=== PATIENT | female | born 1975 | race Caucasian/White ===

== ENCOUNTER 2022-10-19 12:49 | Observation (INO) ==
[2022-10-19 13:57] LABS: Basophils # (auto) 0.04 K/uL (0-0.2); Basophils % (auto) 0.7 %; Eosinophils % (auto) 9.2 %; Hematocrit (blood only) 23.6 % (37.0-47.0); Hemoglobin 7.5 g/dl (12.0-16.0); Immature Granulocytes # (auto) 0.01 K/uL (0.01-0.20); Immature Granulocytes % (auto) 0.2 %; Lymphocytes # (auto) 1.69 K/uL (1.2-3.4); Mean Corpuscular Hemoglobin 28.1 pg (25.0-34.0); Mean Corpuscular Hgb Conc 31.8 g/dL (32.0-36.0); Mean Corpuscular Volume 88.4 fL (80.0-100.0); Mean Platelet Volume 10.2 fL (9.4-12.4); Monocytes # (auto) 0.39 K/uL (0.11-0.59); Monocytes % (auto) 7.2 %; Neutrophils # (auto) 2.82 K/uL (1.40-6.50); Neutrophils % (auto) 51.7 %; Platelet Count 349 K/uL (130-400); RDW Coefficient of Variation 17.4 % (11.5-14.5); RDW Standard Deviation 54.5 fL (36.4-46.3); Red Blood Count 2.67 M/uL (4.20-5.40); White Blood Count 5.45 K/ul (4.8-10.8)
[2022-10-19 14:20] LABS: Albumin Globulin Ratio 1.6 (0.9-2); Albumin Level 3.4 gm/dl (3.4-5.0); BUN Creatinine Ratio 25.6 (10-20); Bilirubin,Total 0.4 mg/dl (0.2-1.0); Calcium 8.6 mg/dl (8.6-10.3); Creatinine Clr Calc Pharmacy 92.5 ml/min; Est GFR (African American) 104.2 ml/min; Est GFR (Non-African American) 89.9 ml/min; Globulin 2.1 gm/dl (2.5-4.0); Potassium 4.1 mmol/L (3.5-5.1); Total Protein 5.5 gm/dl (6.0-8.3)
[2022-10-19 14:21] LABS: Polychromasia 1+
[2022-10-19] MEDS ORDERED: PANTOprazole 40 MG in SYRINGE 0 ML IV ONE (14:30)
[2022-10-19] MEDS ORDERED: PANTOPRAZOLE BOLUS/DRIP 1 EACH IV STA (15:33)
[2022-10-19] MEDS ORDERED: SODIUM CHLORIDE 0.9% 1000ML 1,000 ML IV ONE (15:33)
[2022-10-19] MEDS ORDERED: PANTOprazole 80 MG in DEXTROSE 5% 100 ML IV ONE (15:33)
[2022-10-19] MEDS ORDERED: ONDANSETRON INJ 2 MG/ML 2 ML VIAL IV STA (15:34)
[2022-10-19] MEDS ORDERED: MoRPHine SULFATE 4 MG/ML 1 ML CARP\\VIAL IV STA ×2 (15:34→16:51)
--- NOTE | 2022-10-19 15:35 | Emergency Department Note ---
Impression & Plan UGIB (upper gastrointestinal bleed) ADMIT ED Provider Note HPI: The patient is a very pleasant 47-year-old female with history of gastric bypass, complicated historically with marginal ulcers and anemia, presents emergency department with a chief complaint of dark stools recently. Patient states she mentioned the symptoms to her PCP and was referred to the ED for fu rther evaluation. On arrival here to the ED the patient complains of some epigastric pain, denies any vomiting, states her stools have been dark recently. Patient is hemodynamically stable on arrival, she is not tachycardic, she is saturating well on room air. ROS: - Per HPI *Outpatient medications and allergy history reviewed. *Pertinent external medical records reviewed. PE: General: Alert HEENT: Normocephalic, trachea midline Eyes: Extraocular eye movement is intact, no scleral erythema Pulmonary: Clear to auscultation bilaterally, no wheezing Cardio: Regular rate and rhythm GI: Abdomen is soft to palpation, moderate epigastric tenderness to palpation without guarding or rigidity : No suprapubic tenderness MSK: No evidence of trauma or malformation of the extremities, no edema Skin: No evidence of rash Neuro: Alert, no focal deficits Psychiatric: Cooperative pvc monitor: (As interpreted by myself): - An order was placed for continuous cardiac monitoring - Patient was noted to be in sinus rhythm with a rate of 70 Interventions provided in ED: -IV morphine, IV Zofran, IV Protonix bolus and drip Differential Diagnosis: Peptic ulcer disease, perforated viscus, acute gastritis, perforation of marginal ulcer, acute pancreatitis, amongst other potential pathologies. Medical Decision Making: The patient is a 39-year-old female who presented to the emergency department with epigastric pain. Shortly after the patient arrived IV was established and lab work obtained, patient was maintained on media monitor. Patient is hemodynamically stable on arrival. Lab work shows evidence of anemia with hemoglobin of 7.5, previous lab work in July showed hemoglobin within normal limits. Patient has complained of dark stools recently and does have history of gastric bypass that has been complicated in the past with gastrojejunal anastomotic ulcerations. CT imaging of the abdomen pelvis was therefore performed and does not show any evidence of perforated viscus/ulcer. There is evidence of gastritis on imaging. Patient required IV morphine and IV Zofran here in the ED for pain and nausea. She was placed on a Protonix bolus and drip. Type and screen was ordered, given the patient's hemodynamic stability, transfusion will be deferred at this time as hemoglobin is above 7.0. Patient is in agreement to this. Case was discussed with the on-call supervisor nurse for [facility], Dr. Estes, who was in agreement for consultation, recommends making the patient n.p.o. and they will likely do an EGD in the morning. I discussed this with the patient and she is in agreement. Case was therefore then discussed with the on-call midlevel provider for the [facility] hospitalist service, Kaila Leal, and the patient was placed for admission in stable condition. Consultants: - Hospitalist service, Dr. Abel -Gastroenterology, Dr. Estes Disposition discussion held by myself with: Patient Diagnosis: 1. Upper GI bleed 2. Anemia, acute, secondary to gastrointestinal hemorrhage 3. Epigastric pain, acute 4. 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 Sacroiliac joint pain Surgical History Gastric bypass status for obesity H/O cystoscopy H/O lithotripsy History of bilateral tubal ligation History of cholecystectomy History of colonoscopy History of esophagogastroduodenoscopy (EGD) S/P carpal tunnel release S/P endometrial ablation S/P right rotator cuff repair [place] teeth extracted Family History Grandmother (Maternal) Breast cancer Father Pancreatic cancer Sister Nausea and vomiting after administration of anesthetic agent Denies family history of Ovarian cancer Prostate cancer Myocardial infarction Colorectal cancer Social History Smoking Status: Former smoker Second Hand Exposure: No; Do You Dip or Chew Tobacco: No; Hx Alcohol Use: Yes Hx Substance Use: No Preferred Language: Kyrgyz Communication Ability: Effective Crushing Machine Operator Required: No Beliefs That Will Affect Care: None marital status: Current Living Situation: Family current occupational status: 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 Feels Safe at Home: Yes Childhood Exposure to Second-Hand Smoke: No Dental Care, Regularly: Yes Physical Activity Frequency: 3-4 Times per Week Seatbelt Use: always Sunscreen Use: Yes Assistive Devices: Glasses Allergies Allergies Allergy/AdvReac Type Severity Reaction Status Date / Time No Known Allergies Allergy Unknown Verified 10/19/22 16:40 Home Meds Home Medications Medication Instructions Recorded Confirmed diphenhydramine HCl 25 mg capsule 75 mg PO HS 06/27/21 10/19/22 (Benadryl) cholecalciferol (vitamin D3) 50 50 mcg PO QAM 01/19/22 10/19/22 mcg (2,000 unit) capsule clindamycin phosphate 1 % topical 1 applic topical BID PRN Rash 01/19/22 gel ferrous sulfate 325 mg (65 mg 325 mg PO QAM 01/19/22 10/19/22 iron) tablet omeprazole 20 mg capsule,delayed 20 mg PO QAM 01/19/22 10/19/22 release multivitamin 10 ml PO DAILY 10/19/22 10/19/22 Previous Rx's Medication Instructions Recorded spironolactone 25 mg tablet 25 mg PO .COMPLEX #270 tabs 04/08/22 clonidine HCl 0.2 mg tablet 0.2 mg PO HS #90 tabs 05/26/22 levothyroxine 137 mcg tablet 137 mcg PO QAM #90 tabs 06/29/22 metformin 500 mg tablet 1,000 mg PO BID #360 tabs 07/31/22 duloxetine 60 mg capsule,delayed 60 mg PO HS #90 caps 08/05/22 release doxepin 50 mg capsule 50 mg PO HS #90 caps 08/27/22 gabapentin 800 mg tablet 800 mg PO TID #120 tabs 09/02/22 methylphenidate HCl 10 mg tablet 10 mg PO BID #60 tabs 10/15/22 (Ritalin) Results & Data (ED) Vital Signs Vital Signs - 24 hr 10/19/22 12:54 Temperature 36.6 C Temperature Source Temporal Artery Scan Pulse Rate 81 Respiratory Rate 16 Blood Pressure 109/74 Blood Pressure Mean 85 Pulse Oximetry 98 Sepsis Recent Fever Within 48 Hours No Sepsis New/Unexplained Change in Mental Status N/A Sepsis Action Taken by Nursing No Action Required Laboratory Data 10/19/22 13:37 10/19/22 13:37 Lab Results 10/19/22 10/19/22 10/19/22 Range/Units 13:37 13:37 13:37 WBC 5.45 (4.8-10.8) K/ul RBC 2.67 L (4.20-5.40) M/uL Hgb 7.5 L (12.0-16.0) g/dl Hct 23.6 L (37.0-47.0) % MCV 88.4 (80.0-100.0) fL MCH 28.1 (25.0-34.0) pg MCHC 31.8 L (32.0-36.0) g/dL RDW Std Deviation 54.5 H (36.4-46.3) fL RDW Coeff of Escobar 17.4 H (11.5-14.5) % Plt Count 349 (130-400) K/uL MPV 10.2 (9.4-12.4) fL Immature Gran % (Auto) 0.2 % Neut % (Auto) 51.7 % Lymph % (Auto) 31.0 % [place] % (Auto) 7.2 % Eos % (Auto) 9.2 % Baso % (Auto) 0.7 % Reticulocyte % (Auto) 4.2 H (0.5-2.0) % Neut # (Auto) 2.82 (1.40-6.50) K/uL Lymph # (Auto) 1.69 (1.2-3.4) K/uL [place] # (Auto) 0.39 (0.11-0.59) K/uL Eos # (Auto) 0.50 (0-0.50) K/uL Baso # (Auto) 0.04 (0-0.2) K/uL Reticulocyte # 0.11 H (0.02-0.10) 10^6/uL Immature Gran # (Auto) 0.01 (0.01-0.20) K/uL Polychromasia 1+ Sodium 140 (136-145) mmol/L Potassium 4.1 (3.5-5.1) mmol/L Chloride 110 H (98-107) mmol/L Carbon Dioxide 27 (21-32) mmol/L Anion Gap 3 (3-11) BUN 20 (6-23) mg/dl Creatinine 0.78 (0.6-1.2) mg/dl Est Cr Clr Drug Dosing 92.5 ml/min Est GFR ( Amer) 104.2 ml/min Est GFR (Non-Af Amer) 89.9 ml/min BUN/Creatinine Ratio 25.6 H (10-20) Glucose 91 (70-99(Fasting)) mg/dl Calcium 8.6 (8.6-10.3) mg/dl Total Bilirubin 0.4 (0.2-1.0) mg/dl AST 22 (13-39) U/L ALT 18 (7-52) U/L Alkaline Phosphatase 64 (34-104) U/L Total Protein 5.5 L (6.0-8.3) gm/dl Albumin 3.4 (3.4-5.0) gm/dl Globulin 2.1 L (2.5-4.0) gm/dl Albumin/Globulin Ratio 1.6 (0.9-2) Lipase 10 L (11-82) U/L SARS-CoV-2, RNA, NAAT (NEGATIVE) Blood Type Antibody Screen 10/19/22 10/19/22 Range/Units 14:54 16:25 WBC (4.8-10.8) K/ul RBC (4.20-5.40) M/uL Hgb (12.0-16.0) g/dl Hct (37.0-47.0) % MCV (80.0-100.0) fL MCH (25.0-34.0) pg MCHC (32.0-36.0) g/dL RDW Std Deviation (36.4-46.3) fL RDW Coeff of Escobar (11.5-14.5) % Plt Count (130-400) K/uL MPV (9.4-12.4) fL Immature Gran % (Auto) % Neut % (Auto) % Lymph % (Auto) % [place] % (Auto) % Eos % (Auto) % Baso % (Auto) % Reticulocyte % (Auto) (0.5-2.0) % Neut # (Auto) (1.40-6.50) K/uL Lymph # (Auto) (1.2-3.4) K/uL [place] # (Auto) (0.11-0.59) K/uL Eos # (Auto) (0-0.50) K/uL Baso # (Auto) (0-0.2) K/uL Reticulocyte # (0.02-0.10) 10^6/uL Immature Gran # (Auto) (0.01-0.20) K/uL Polychromasia Sodium (136-145) mmol/L Potassium (3.5-5.1) mmol/L Chloride (98-107) mmol/L Carbon Dioxide (21-32) mmol/L Anion Gap (3-11) BUN (6-23) mg/dl Creatinine (0.6-1.2) mg/dl Est Cr Clr Drug Dosing ml/min Est GFR ( Amer) ml/min Est GFR (Non-Af Amer) ml/min BUN/Creatinine Ratio (10-20) Glucose (70-99(Fasting)) mg/dl Calcium (8.6-10.3) mg/dl Total Bilirubin (0.2-1.0) mg/dl AST (13-39) U/L ALT (7-52) U/L Alkaline Phosphatase (34-104) U/L Total Protein (6.0-8.3) gm/dl Albumin (3.4-5.0) gm/dl Globulin (2.5-4.0) gm/dl Albumin/Globulin Ratio (0.9-2) Lipase (11-82) U/L SARS-CoV-2, RNA, NAAT NEGATIVE (NEGATIVE) Blood Type O Positive Antibody Screen NEGATIVE Administered Medications Discontinued Medications Pantoprazole Sodium 40 mg/ (Syringe) 10 mls @ 5 mls/min IV NOW ONE Stop: 10/19/22 14:31 Last Admin: 10/19/22 15:17 Dose: 5 mls/min Documented By: LUCERO Sodium Chloride (Nss 1000ml) 1,000 mls @ 999 mls/hr IV .Q1H1M ONE Stop: 10/19/22 16:33 Last Infusion: 10/19/22 16:52 Dose: 0 mls/hr Documented By: Admin: 10/19/22 15:51 Dose: 999 mls/hr Documented By: LUCERO Pantoprazole Sodium (Protonix Bolus/Drip) 0 mls @ 1 mls/hr IV ONE STA Stop: 10/19/22 15:34 Last Admin: 10/19/22 18:09 Dose: Not Given Documented By: LUCERO Pantoprazole Sodium 80 mg/ (Dextrose) 120 mls @ 400 mls/hr IV NOW ONE Stop: 10/19/22 15:50 Last Infusion: 10/19/22 16:41 Dose: 0 mls/hr Documented By: Admin: 10/19/22 16:23 Dose: 400 mls/hr Documented By: GAYATHRI Pantoprazole Sodium 40 mg/ (Dextrose) 100 mls @ 20 mls/hr IV Q5H LILLY Stop: 11/18/22 15:59 Last Admin: 10/19/22 16:49 Dose: 8 mg/hr, 20 mls/hr Documented By: LUCERO Ioversol (Optiray 320 100ml) 88 ml IV ONCE ONE Stop: 10/19/22 16:17 Last Admin: 10/19/22 16:16 Dose: 88 ml Documented By: SHAHID Morphine Sulfate (Morphine Sulfate 4 Mg/Ml 1 Ml Carp\Vial) 4 mg IV NOW STA Stop: 10/19/22 15:35 Last Admin: 10/19/22 15:45 Dose: 4 mg Documented By: LUCERO Morphine Sulfate (Morphine Sulfate 4 Mg/Ml 1 Ml Carp\Vial) 4 mg IV NOW STA Stop: 10/19/22 16:52 Last Admin: 10/19/22 16:56 Dose: 4 mg Documented By: MAILE Ondansetron HCl (Ondansetron Inj 2 Mg/Ml 2 Ml Vial) 4 mg IV NOW STA Stop: 10/19/22 15:35 Last Admin: 10/19/22 15:45 Dose: 4 mg Documented By: LUCERO Imaging Data Radiologist's Impression: Abdomen/Pelvis CT 10/19/22 15:[address] WITH IV CONTRAST CT DOSE: 1021.90 mGy.cm HISTORY: Epigastric pain, anemia, history of bypass TECHNIQUE: Multiaxial CT images of the abdomen and pelvis were performed fo llowing the use of intravenous contrast. A dose lowering technique was utilized adhering to the principles of ALARA. COMPARISON STUDY: Abdomen and pelvis CT 05/02/2010. FINDINGS: Mild dependent changes seen within the lungs posteriorly. No pneumope ritoneum. No pneumatosis. No acute fractures identified. The patient is status post Nini-en-Y gastric bypass. There is mild gastric wall thickening with submucosal edema seen throughout the excluded portion of the stomach. This is consistent with a nonspecific gastritis. No perforation or abscess identified at this time. No dilated loops of bowel to suggest an obstruction. There is a normal appendix. Moderate fecal retention is noted. Prior cholecystectomy. This likely accounts for the mild bile duct dilatation. The spleen, adrenal glands, and pancreas unremarkable. Normal right kidney. There is a punctate stone within the left kidney. No ureteral stones. No hydronephrosis. No retroperitoneal lymphadenopathy. Normal caliber abdominal aorta. The bladder, uterus, bilateral adnexa are within normal limits. No pelvic free fluid. IMPRESSION: 1. The patient is status post Nini-en-Y gastric bypass. There is mild gastric wall thickening with submucosal edema seen throughout the excluded portion of the stomach. This is consistent with a nonspecific gastritis. 2. No evidence for bowel obstruction. 3. Normal appendix. 4. Left-sided nephrolithiasis. No hydronephrosis. ACT 112: Negative or not required by law. Electronically signed by: Damion Juárez M.D. 10/19/2022 4:46 PM Discharge Plan Visit Data Chief Complaint: Referred by Doctor Stated Complaint: REF BY , DARK STOOL, SOB, HEADACHE ED Provider: Ramiro Gregorio Discharge Problem: UGIB (upper gastrointestinal bleed) Patient Disposition: Admitted As Inpatient Discharge Instructions Interventions: ED Discharge Assessment Last Done: 10/19/22 18:01 Forms Stand Alone Forms: My [facility] [place] [employer] Prescriptions Prescriptions: No Action spironolactone 25 mg tablet 25 mg PO .COMPLEX Qty: 270 3RF Rx Instructions: Take 50mg in the AM and 25mg in the PM clonidine HCl 0.2 mg tablet 0.2 mg PO HS Qty: 90 1RF levothyroxine 137 mcg tablet 137 mcg PO QAM Qty: 90 0RF metformin 500 mg tablet 1,000 mg PO BID Qty: 360 1RF doxepin 50 mg capsule 50 mg PO HS Qty: 90 1RF gabapentin 800 mg tablet 800 mg PO TID Qty: 120 5RF Rx Instructions: Take 1 tablet in the AM, 1 in the afternoon and 2 tablets at bedtime methylphenidate HCl [Ritalin] 10 mg tablet 10 mg PO BID Qty: 60 0RF duloxetine 60 mg capsule,delayed release(DR/EC) 60 mg PO HS Qty: 90 1RF diphenhydramine HCl [Benadryl] 25 mg capsule 75 mg PO HS clindamycin phosphate 1 % gel 1 applic topical BID PRN (Reason: Rash) ferrous sulfate 325 mg (65 mg iron) tablet 325 mg PO QAM omeprazole 20 mg capsule,delayed release(DR/EC) 20 mg PO QAM cholecalciferol (vitamin D3) 50 mcg (2,000 unit) capsule 50 mcg PO QAM multivitamin Liquid 10 ml PO DAILY Referrals Referrals: Khloe Tavares MD [Primary Care Provider] -
[2022-10-19] MEDS ORDERED: PANTOprazole 40 MG in DEXTROSE 5% 100 ML IV SCH (16:00)
[2022-10-19] MEDS ORDERED: OPTIRAY 320 100ml IV ONE (16:16)
--- NOTE | 2022-10-19 16:48 | CT Scan Report ---
ABDOMEN AND PELVIS CT WITH IV CONTRAST CT DOSE: 1021.90 mGy.cm HISTORY: Epigastric pain, anemia, history of bypass TECHNIQUE: Multiaxial CT images of the abdomen and pelvis were performed following the use of intrave nous contrast. A dose lowering technique was utilized adhering to the principles of ALARA. COMPARISON STUDY: Abdomen and pelvis CT 05/02/2010. FINDINGS: Mild dependent changes seen within the lungs posteriorly. No pneumoperitoneum. No pneumatos is. No acute fractures identified. The patient is status post Nini-en-Y gastric bypass. There is mild gastric wall thickening with submucosal edema seen throughout the excluded portion of the stomach. T his is consistent with a nonspecific gastritis. No perforation or abscess identified at this time. No dilated loops of bowel to suggest an obstruction. There is a normal appendix. Moderate fecal retenti on is noted. Prior cholecystectomy. This likely accounts for the mild bile duct dilatation. The splee n, adrenal glands, and pancreas unremarkable. Normal right kidney. There is a punctate stone within t he left kidney. No ureteral stones. No hydronephrosis. No retroperitoneal lymphadenopathy. Normal vicente iber abdominal aorta. The bladder, uterus, bilateral adnexa are within normal limits. No pelvic free fluid. IMPRESSION: 1. The patient is status post Nini-en-Y gastric bypass. There is mild gastric wall thickening with petty bmucosal edema seen throughout the excluded portion of the stomach. This is consistent with a nonspec ific gastritis. 2. No evidence for bowel obstruction. 3. Normal appendix. 4. Left-sided nephrolithiasis. No hydronephrosis. ACT 112: Negative or not required by law. Electronically signed by: Damion Juárez M.D. 10/19/2022 4:46 PM
--- NOTE | 2022-10-19 17:47 | History & Physical Report ---
Date of Service October 19, 2022 Assessment & Plan (1) Acute upper GI bleed: Plan: Acute/unstable/mod to high risk - Admit to med tele - NPO - CBC and CMP reviewed. BUN 20, HD stable w/o tachycardia or hypotension, suspect more subacute/slow bleed - Case has been d/w Dr. Estes with GI, will plan to perform EGD tomorrow AM - IV Protonix bolus of 80mg given and drip started - DC drip and transition to 40mg IV BID - Hydrate with NSS @ 100 ml/hr x 1 liter - IV Zofran and IV APAP - No NSAIDs (2) Acute blood loss anemia: Plan: Acute/unstable - mod to high risk - CBC reviewed, hgb 7.5 in setting of acute/subacute upper GI bleed, previous hgb 12.7 08/05/22 - Typed and screened, will crossmatch and hold for 2 units - Serial H&H and will transfuse 2 units of PRBCs for hgb <7 - In the interim, repeat Fe deficiency labs ordered including serum iron, tibc, ferritin, retic count (3) Prediabetes: Plan: Chronic/stable - On Metformin 1000mg BID at home for weight loss and PDM - Hold during hospitalization (received IV contrast) - Does not require BSG monitoring (4) Hypothyroidism: Plan: Chronic/stable - Continue Levothyroxine 137 mcg daily BB (5) GERD without esophagitis: Plan: Chronic/unstable - On PPI at home, given UGIB, converted to IV PPI (6) ADHD: Plan: Chronic/stable - On Methylphenidate 10mg BID on work days (7) Fibromyalgia: Plan: Chronic/stable - Chronic pain syndrome/fibromyalgia - Continue Gabapentin and Duloxetine (8) Depression: Plan: Chronic/stable - Continue Duloxetine, Clonidine, and Doxepin Plan Defer chemoppx for VTE prevention in the setting of acute UGI bleeding. SCDs have been ordered b/l. AM labs have been ordered. Above plan of care has been d/w Dr. Abel who has also seen and evaluated this patient. Further orders will be implemented as warranted. History of Present Illness Chief Complaint: fatigued, dark stools Primary Care Provider: MD Reece Golden is a 47 yo RYGB in 2009, bleeding ulcer/PUD s/p clipping in 2017, revision and SHIMON of gastric bypass in Jul 2017 who presents to the ER today c/o dark stools since Wednesday. She has a h/o multiple GI bleeds in the past prior to her bypass revision in 2017. Since then, patient has not had a GI bleed. Her most recent upper and lower scope was performed in December of [address] Rodrigez with findings of ulceration at GJ anastomosis site but otherwise benign examinat ion. She admits that due to her chronic pain/fibromyalgia, that she takes a lot of ibuprofen, generally 600mg "a couple of times a day," sometimes more when she is working. She notes that she just completed 5 IV iron infusions, last one was . In addition to her black stools, she has had fatigue, dizziness/lightheadedness, and tachycardia with minimal exertional activities. She subsequently presented for evaluation today where her work up demonstrated a hgb of 7.5 which is a large drop from her last hgb of 12.7 in July of this year. A CT a/p mild gastric wall thickening with submucosal edema seen throughout the excluded portion of the stomach consistent with a nonspecific gastritis. Pt received a liter of NSS, Morphine, Protonix bolus and drip, as well as Zofran and has been referred to the hospitalist service for admission. Allergies Allergy/AdvReac Type Severity Reaction Status Date / Time No Known Allergies Allergy Unknown Verified 10/19/22 16:40 Home Medications Medication Instructions Recorded Confirmed Type diphenhydramine HCl 25 mg capsule 75 mg PO HS 06/27/21 10/19/22 History (Benadryl) cholecalciferol (vitamin D3) 50 50 mcg PO QAM 01/19/22 10/19/22 History mcg (2,000 unit) capsule clindamycin phosphate 1 % topical 1 applic topical BID PRN Rash 01/19/22 10/19/22 History gel ferrous sulfate 325 mg (65 mg 325 mg PO QAM 01/19/22 10/19/22 History iron) tablet omeprazole 20 mg capsule,delayed 20 mg PO QAM 01/19/22 10/19/22 History release spironolactone 25 mg tablet 25 mg PO .COMPLEX #270 tabs 04/08/22 10/19/22 Rx clonidine HCl 0.2 mg tablet 0.2 mg PO HS #90 tabs 05/26/22 10/19/22 Rx levothyroxine 137 mcg tablet 137 mcg PO QAM #90 tabs 06/29/22 10/19/22 Rx metformin 500 mg tablet 1,000 mg PO BID #360 tabs 07/31/22 10/19/22 Rx duloxetine 60 mg capsule,delayed 60 mg PO HS #90 caps 08/05/22 10/19/22 Rx release doxepin 50 mg capsule 50 mg PO HS #90 caps 08/27/22 10/19/22 Rx gabapentin 800 mg tablet 800 mg PO TID #120 tabs 09/02/22 10/19/22 Rx methylphenidate HCl 10 mg tablet 10 mg PO BID #60 tabs 10/15/22 10/19/22 Rx (Ritalin) multivitamin 10 ml PO DAILY 10/19/22 10/19/22 History Past Med/Surg History Medical History ADHD Bleeding gastric ulcer Circadian rhythm disorder Depression Fibromyalgia GERD without esophagitis History of adenomatous polyp of colon History of allergic drug reaction History of colitis History of COVID-19 Hx of dental abscess Hypothyroidism Insomnia Kidney stones Left hip pain Leg length discrepancy Obesity (BMI 30.0-34.9) Prediabetes 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 Sacroiliac joint pain Surgical History Gastric bypass status for obesity H/O cystoscopy H/O lithotripsy History of bilateral tubal ligation History of cholecystectomy History of colonoscopy History of esophagogastroduodenoscopy (EGD) S/P carpal tunnel release S/P endometrial ablation S/P right rotator cuff repair [place] teeth extracted Family History Grandmother (Maternal) Breast cancer Father Pancreatic cancer Sister Nausea and vomiting after administration of anesthetic agent Denies family history of Ovarian cancer Prostate cancer Myocardial infarction Colorectal cancer Social History Smoking Status: Former smoker Second Hand Exposure: No; Do You Dip or Chew Tobacco: No; Hx Alcohol Use: Yes Hx Substance Use: No Preferred Language: Latvian Communication Ability: Effective Hand Bulldozer Required: No Beliefs That Will Affect Care: None marital status: Current Living Situation: Family 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 AAOx4. NAD. LUNGS: Clear to auscultation bilaterally. No W/R/R. CARDIOVASCULAR: Regular rate and rhythm, systolic murmur noted on examination. No g/r. ABDOMEN: Soft, non-tender and non-distended. BS normoactive x 4 quad. SKIN: Warm, dry, intact. No rashes or lesions. Results & Data Results & Data Vital Signs (Past 12 Hours) Vital Signs Temp Pulse Resp BP Pulse Ox 10/19/22 12:54 36.6 C 81 16 109/74 98 Laboratory Results 10/19/22 13:37 10/19/22 13:37 Diagnostic Findings Abdomen/Pelvis CT 10/19/22 15:[address] WITH IV CONTRAST CT DOSE: 1021.90 mGy.cm HISTORY: Epigastric pain, anemia, history of bypass TECHNIQUE: Multiaxial CT images of the abdomen and pelvis were performed following the use of intravenous contrast. A dose lowering technique was utilized adhering to the principles of ALARA. COMPARISON STUDY: Abdomen and pelvis CT 05/02/2010. FINDINGS: Mild dependent changes seen within the lungs posteriorly. No pneumoperitoneum. No pneumatosis. No acute fractures identified. The patient is status post Nini-en-Y gastric bypass. There is mild gastric wall thickening with submucosal edema seen throughout the excluded portion of the stomach. This is consistent with a nonspecific gastritis. No perforation or abscess identified at this time. No dilated loops of bowel to suggest an obstruction. There is a normal appendix. Moderate fecal retention is noted. Prior cholecystectomy. This likely accounts for the mild bile duct dilatation. The spleen, adrenal glands, and pancreas unremarkable. Normal right kidney. There is a punctate stone within the left kidney. No ureteral stones. No hydronephrosis. No retroperitoneal lymphadenopathy. Normal caliber abdominal aorta. The bladder, uterus, bilateral adnexa are within normal limits. No pelvic free fluid. IMPRESSION: 1. The patient is status post Nini-en-Y gastric bypass. There is mild gastric wall thickening with submucosal edema seen throughout the excluded portion of the stomach. This is consistent with a nonspecific gastritis. 2. No evidence for bowel obstruction. 3. Normal appendix. 4. Left-sided nephrolithiasis. No hydronephrosis. ACT 112: Negative or not required by law. Electronically signed by: Damion Juárez M.D. 10/19/2022 4:46 PM Supervising Physician Co-Signing Physician Notes Patient seen and examined, chart reviewed, case discussed with Kaila Leal PA-C and I agree with the assessment and plan as above except as otherwise noted Labs and images reviewed Reece is a 47-year-old female who presents with acute blood loss anemia, symptomatic with a previous hemoglobin of 12.7 now 7.5 with upper abdominal discomfort consistent with upper GI bleed. Patient has been placed on Protonix bolus and drip converted to twice daily push. N.p.o. pending EGD anticipated morning of 10/20. 2 units PRBC being transfused, with recheck pending for symptomatic anemia. Will trend H&H overnight, and keep 1 additional unit crossmatched on hold or continued bleeding/symptoms. At bedside she is fatigued and continues to have epigastric pain, heart rate is normal, epigastrium is tender. Breathing is unlabored and lungs are clear. Saturating normally on room air. Agree with assessment and management as above. PG Care Time/CCT Total # of Minutes Spent Total Time Spent with Patient: Total time spent is greater than 50% in coordination of care (as documented) at patient's floor/unit and/or counseling patient: Coding Level of Care Code 11279 INT INP/OBS CARE 3/75MIN Diagnoses Acute upper GI bleed K92.2 Acute blood loss anemia D62 Prediabetes R73.03 Hypothyroidism E03.9 GERD without esophagitis K21.9 ADHD F90.9 Fibromyalgia M79.7 Depression F32.A
[2022-10-19 18:25] LABS: Reticulocyte % 4.2 % (0.5-2.0); Reticulocytes # 0.11 10^6/uL (0.02-0.10)
[2022-10-19] MEDS ORDERED: ACETAMINOPHEN 1,000 MG/100 ML VIAL IV PRN (18:40)
[2022-10-19] MEDS ORDERED: MoRPHine SULFATE 2 MG/ML CARP IV PRN (18:40)
[2022-10-19] MEDS ORDERED: SODIUM CHLORIDE 0.9% 1000ML 1,000 ML IV SCH (18:40)
[2022-10-19] MEDS ORDERED: SODIUM CHLORIDE 0.9% 250 ML IV PRN (19:07)
[2022-10-19 19:27] LABS: Hematocrit (blood only) 24.8 % (37.0-47.0); Hemoglobin 7.9 g/dl (12.0-16.0)
[2022-10-19] MEDS: GABAPENTIN 800 MG TAB PO SCH (20:27)
[2022-10-19] MEDS: METHYLPHENIDATE HCL 10 MG TABLET PO SCH (20:27)
[2022-10-19] MEDS: DOXEPIN HCL 50 MG CAPSULE PO SCH (20:27)
[2022-10-19] MEDS: cloNIDine HCL 0.1 MG TAB PO SCH (20:27)
[2022-10-19] MEDS: DULoxetine HCL 60 MG CAP PO SCH (20:27)
[2022-10-19] MEDS: PANTOprazole 40 MG in SYRINGE 0 ML IV SCH (20:30)
[2022-10-19] MEDS: MoRPHine SULFATE 4 MG/ML 1 ML CARP\\VIAL IV PRN (21:04)
[2022-10-19 21:31] LABS: Appearance Urine Clear (Clear); Bacteria Urine Automated 3+ (Negative); Bilirubin Urine Negative (Negative); Blood Urine Negative (Negative); Color Urine Yellow; Epithelial Cell Urine Auto >30 /lpf (0-5); Glucose Urine UA Negative (Negative); Ketones Urine Negative (Negative); Leukocyte Esterase Urine Trace (Negative); Nitrite Urine Positive (Negative); Protein Urine Negative (Negative); RBC Urine Automated 0-4 /hpf (0-4); Specific Gravity Urine > 1.045 (1.000-1.030); Urobilinogen Urine Negative (Negative)
[2022-10-19] MEDS: ONDANSETRON INJ 2 MG/ML 2 ML VIAL IV PRN (22:31)
[2022-10-20] MEDS ORDERED: diphenhydrAMINE 50 MG/ML VIAL IV STA (00:23)
[2022-10-20 00:51] LABS: Hematocrit (blood only) 23.1 % (37.0-47.0); Hemoglobin 7.3 g/dl (12.0-16.0)
[2022-10-20] MEDS: MoRPHine SULFATE 4 MG/ML 1 ML CARP\\VIAL IV PRN (02:27)
[2022-10-20] MEDS: LEVOTHYROXINE SODIUM 137 MCG TABLET PO SCH (05:39)
[2022-10-20 06:49] LABS: Basophils # (auto) 0.02 K/uL (0-0.2); Basophils % (auto) 0.4 %; Eosinophils # (auto) 0.29 K/uL (0-0.50); Eosinophils % (auto) 5.4 %; Hematocrit (blood only) 24.2 % (37.0-47.0); Hemoglobin 7.6 g/dl (12.0-16.0); Immature Granulocytes # (auto) 0.02 K/uL (0.01-0.20); Immature Granulocytes % (auto) 0.4 %; Lymphocytes # (auto) 1.54 K/uL (1.2-3.4); Lymphocytes % (auto) 28.6 %; Mean Corpuscular Hgb Conc 31.4 g/dL (32.0-36.0); Mean Corpuscular Volume 89.3 fL (80.0-100.0); Monocytes % (auto) 7.4 %; Neutrophils # (auto) 3.11 K/uL (1.40-6.50); Neutrophils % (auto) 57.8 %; Platelet Count 322 K/uL (130-400); RDW Coefficient of Variation 17.8 % (11.5-14.5); RDW Standard Deviation 56.5 fL (36.4-46.3); Red Blood Count 2.71 M/uL (4.20-5.40); White Blood Count 5.38 K/ul (4.8-10.8)
[2022-10-20 07:10] LABS: RBC Morphology Unremarkable
[2022-10-20 07:11] LABS: BUN Creatinine Ratio 16.7 (10-20); Calcium 8.2 mg/dl (8.6-10.3); Creatinine Clr Calc Pharmacy 100.2 ml/min; Est GFR (African American) 114.8 ml/min; Magnesium 1.4 mg/dl (1.7-2.4); Potassium 4.1 mmol/L (3.5-5.1)
--- NOTE | 2022-10-20 08:33 | Gastrointestinal Consultation ---
Date of Consultation October 20, 2022 Assessment & Plan (1) UGIB (upper gastrointestinal bleed): Plan Discussed case with Dr. Estes who advised on plan. - will schedule patient for an EGD this morning to further evaluate and assess. It is likely that her GI bleeding is secondary to heavy nsaid use with history of bypass. - I advised the patient to avoid nsaids in the future. - continue with protonix 40mg IV bid. - further recommendations to follow endoscopy. History of Present Illness Reason for Consultation: UGIB Requesting Physician: Ramiro Gregorio DO Attending Physician: Crescencio Laws History of Present Illness Patient is a 47 year old female with a past medical history of Rou en Y gastric bypass in 2008, bleeding ulcer/PUD s/p clipping in 2016, revision and SHIMON of gastric bypass in Jul 2017 who presented to the ER yesterday c/o dark stools si nce Wednesday of last week. She admits to 2-3 dark bowel movements daily. She has a h/o multiple GI bleeds in the past prior to her bypass revision in 2017 but reportedly none since. Her last EGD and Colonoscopy were in 12/2021 revealing nonbleeding internal hemorrhoids and gastric bypass with ulceration at the GJ anastomosis. Upon evaluation in ED, her hgb was found to be 7.9. Her last Hgb in the chart from 07/2022 was 12.7. she also admits to epigastric pain rated 7/10 that she describes as a burning. she has associated nausea. She admits she does use aleve/ibuprofen as an outpatient for pain on a daily basis. she also admits to heartburn for which she uses omeprazole and tums but admits this does not help. Upon work up in the ED, she had CT suggestive of nonspecific gastritis (see results below). Hgb this morning is 7.6. history obtained from both patient and the chart - she has a depressed affect and seemed irritated with my attempts to gather a history. Allergies Allergy/AdvReac Type Severity Reaction Status Date / Time No Known Allergies Allergy Unknown Verified 10/19/22 16:40 Home Medications Medication Instructions Recorded Confirmed Type diphenhydramine HCl 25 mg capsule 75 mg PO HS 06/27/21 10/19/22 History (Benadryl) cholecalciferol (vitamin D3) 50 50 mcg PO QAM 01/19/22 10/19/22 History mcg (2,000 unit) capsule clindamycin phosphate 1 % topical 1 applic topical BID PRN Rash 01/19/22 10/19/22 History gel ferrous sulfate 325 mg (65 mg 325 mg PO QAM 01/19/22 10/19/22 History iron) tablet omeprazole 20 mg capsule,delayed 20 mg PO QAM 01/19/22 10/19/22 History release spironolactone 25 mg tablet 25 mg PO .COMPLEX #270 tabs 04/08/22 10/19/22 Rx clonidine HCl 0.2 mg tablet 0.2 mg PO HS #90 tabs 05/26/22 10/19/22 Rx levothyroxine 137 mcg tablet 137 mcg PO QAM #90 tabs 06/29/22 10/19/22 Rx metformin 500 mg tablet 1,000 mg PO BID #360 tabs 07/31/22 10/19/22 Rx duloxetine 60 mg capsule,delayed 60 mg PO HS #90 caps 08/05/22 10/19/22 Rx release doxepin 50 mg capsule 50 mg PO HS #90 caps 08/27/22 10/19/22 Rx gabapentin 800 mg tablet 800 mg PO TID #120 tabs 09/02/22 10/19/22 Rx methylphenidate HCl 10 mg tablet 10 mg PO BID #60 tabs 10/15/22 10/19/22 Rx (Ritalin) multivitamin 10 ml PO DAILY 10/19/22 10/19/22 History Patient History Medical History ADHD Bleeding gastric ulcer Circadian rhythm disorder Depression Fibromyalgia GERD without esophagitis History of adenomatous polyp of colon History of allergic drug reaction History of colitis History of COVID-19 Hx of dental abscess Hypothyroidism Insomnia Kidney stones Left hip pain Leg length discrepancy Obesity (BMI 30.0-34.9) Prediabetes 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 Sacroiliac joint pain Surgical History Gastric bypass status for obesity H/O cystoscopy H/O lithotripsy History of bilateral tubal ligation History of cholecystectomy History of colonoscopy History of esophagogastroduodenoscopy (EGD) S/P carpal tunnel release S/P endometrial ablation S/P right rotator cuff repair [place] teeth extracted Family History Grandmother (Maternal) Breast cancer Father Pancreatic cancer Sister Nausea and vomiting after administration of anesthetic agent Denies family history of Ovarian cancer Prostate cancer Myocardial infarction Colorectal cancer Social History Smoking Status: Former smoker Second Hand Exposure: No; Do You Dip or Chew Tobacco: No; Hx Alcohol Use: Yes Hx Substance Use: No Preferred Language: Belarusian Communication Ability: Effective Stem Dryer Maintainer Required: No Beliefs That Will Affect Care: None marital status: Current Living Situation: Alone and Other Current Living Situation Comment: kids 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 Physical Exam Constitutional: WD/WN, vitals as above Respiratory: normal respiratory effort, lungs clear to auscultation Cardiovascular: RRR, no murmur Gastrointestinal (Abdomen): mid epigastric tenderness to palpation, no guarding, soft, normal bowel sounds. Skin: no rashes, warm and dry Psychiatric: alert with a depressed affect Results & Data Vital Signs (Past 12 Hours) Vital Signs Temp Pulse Pulse Resp BP Pulse Ox O2 Del Method 10/20/22 08:15 57 L 10/20/22 08:01 98.6 F 60 16 111/66 95 Room Air 10/20/22 05:22 98.4 F 67 18 100/62 95 Room Air 10/19/22 21:59 63 10/20/22 00:35 98.2 F 66 18 109/65 97 Room Air Diagnostic Findings ABDOMEN AND PELVIS CT WITH IV CONTRAST CT DOSE: 1021.90 mGy.cm HISTORY: Epigastric pain, anemia, history of bypass TECHNIQUE: Multiaxial CT images of the abdomen and pelvis were performed following the use of intravenous contrast. A dose lowering technique was utilized adhering to the principles of ALARA. COMPARISON STUDY: Abdomen and pelvis CT 05/02/2010. FINDINGS: Mild dependent changes seen within the lungs posteriorly. No pneumoperitoneum. No pneumatosis. No acute fractures identified. The patient is status post Nini-en-Y gastric bypass. There is mild gastric wall thickening with submucosal edema seen throughout the excluded portion of the stomach. This is consistent with a nonspecific gastritis. No perforation or abscess identified at this time. No dilated loops of bowel to suggest an obstruction. There is a normal appendix. Moderate fecal retention is noted. Prior cholecystectomy. This likely accounts for the mild bile duct dilatation. The spleen, adrenal glands, and pancreas unremarkable. Normal right kidney. There is a punctate stone within the left kidney. No ureteral stones. No hydronephrosis. No retroperitoneal lymphadenopathy. Normal caliber abdominal aorta. The bladder, uterus, bilateral adnexa are within normal limits. No pelvic free fluid. IMPRESSION: 1. The patient is status post Nini-en-Y gastric bypass. There is mild gastric wall thickening with submucosal edema seen throughout the excluded portion of the stomach. This is consistent with a nonspecific gastritis. 2. No evidence for bowel obstruction. 3. Normal appendix. 4. Left-sided nephrolithiasis. No hydronephrosis. ACT 112: Negative or not required by law. Electronically signed by: Damion Juárez M.D. 10/19/2022 4:46 PM PG Care Time/CCT Total # of Minutes Spent Total Time Spent with Patient: Total time spent is greater than 50% in coordination of care (as documented) at patient's floor/unit and/or counseling patient: Coding Level of Care Code 68545 IN/OBS CONSULT LVL 2,35M Diagnoses UGIB (upper gastrointestinal bleed) K92.2 Time Spent (min) 40
[2022-10-20] MEDS: CHOLECALCIFEROL 1,000 UNITS 25 MCG TAB PO SCH (08:50)
[2022-10-20] MEDS: PANTOprazole 40 MG in SYRINGE 0 ML IV SCH ×2 (08:50→22:52)
[2022-10-20] MEDS: GABAPENTIN 800 MG TAB PO SCH ×3 (08:51→20:20)
[2022-10-20] MEDS: METHYLPHENIDATE HCL 10 MG TABLET PO SCH ×2 (08:51→20:21)
--- NOTE | 2022-10-20 13:25 | Anesthesiology Consultation ---
Date of Service October 20, 2022 Assessment & Plan Chart Review Chart Review: Acceptable Risk for Surgery Consults Requested none ASA ASA3 Proposed Anesthesia Anesthesia Type: MAC Risk / Benefits Reviewed With: PT / POA / Parent / Guardian, Accepts Plan and Informed Consent Obtained History Surgery Operation Date: 10/20/22 17:15 Proposed Procedures p Esophagogastroduodenoscopy Dr. Estes - Jose Estes MD Height/Weight Height: 5 ft 6 in Weight: 77.1 kg Allergies Allergy/AdvReac Type Severity Reaction Status Date / Time No Known Allergies Allergy Unknown Verified 10/19/22 16:40 Medications Home Medications Medication Instructions Recorded Confirmed Last Taken diphenhydramine HCl 25 mg capsule 75 mg PO HS 06/27/21 10/19/22 10/18/22 (Benadryl) cholecalciferol (vitamin D3) 50 50 mcg PO QAM 01/19/22 10/19/22 10/19/22 mcg (2,000 unit) capsule clindamycin phosphate 1 % topical 1 applic topical BID PRN Rash 01/19/22 3 Unknown gel ferrous sulfate 325 mg (65 mg 325 mg PO QAM 01/19/22 10/19/22 10/19/22 iron) tablet omeprazole 20 mg capsule,delayed 20 mg PO QAM 01/19/22 10/19/22 10/19/22 release spironolactone 25 mg tablet 25 mg PO .COMPLEX #270 tabs 04/08/22 10/19/22 10/19/22 clonidine HCl 0.2 mg tablet 0.2 mg PO HS #90 tabs 05/26/22 10/19/22 10/18/22 levothyroxine 137 mcg tablet 137 mcg PO QAM #90 tabs 06/29/22 10/19/22 10/19/22 metformin 500 mg tablet 1,000 mg PO BID #360 tabs 07/31/22 10/19/22 10/19/22 duloxetine 60 mg capsule,delayed 60 mg PO HS #90 caps 08/05/22 10/19/22 10/18/22 release doxepin 50 mg capsule 50 mg PO HS #90 caps 08/27/22 10/19/22 10/18/22 gabapentin 800 mg tablet 800 mg PO TID #120 tabs 09/02/22 10/19/22 10/19/22 methylphenidate HCl 10 mg tablet 10 mg PO BID #60 tabs 10/15/22 10/19/22 10/19/22 (Ritalin) multivitamin 10 ml PO DAILY 10/19/22 10/19/22 10/19/22 Active Medications Generic Name Dose Route Start Last Admin Trade Name Freq PRN Reason Stop Dose Admin Clonidine HCl 0.2 mg 10/19/22 21:00 10/19/22 20:27 Clonidine Hcl 0.1 Mg Tab PO 11/18/22 20:59 Not Given HS LILLY Doxepin HCl 50 mg 10/19/22 21:00 10/19/22 20:27 Doxepin Hcl 50 Mg Capsule PO 11/18/22 20:59 Not Given HS LILLY Duloxetine HCl 60 mg 10/19/22 21:00 10/19/22 20:27 Duloxetine Hcl 60 Mg Cap PO 11/18/22 20:59 Not Given HS LILLY Gabapentin 800 mg 10/20/22 09:00 10/20/22 12:30 Gabapentin 800 Mg Tab PO 11/19/22 08:59 Not Given BID@0900,1200 LILLY Gabapentin 1,600 mg 10/19/22 21:00 10/19/22 20:27 Gabapentin 800 Mg Tab PO 11/18/22 20:59 Not Given HS LILLY Pantoprazole Sodium 40 mg/ 10 mls @ 5 mls/min 10/19/22 21:00 10/20/22 08:50 Syringe IV 11/18/22 20:59 5 mls/min BID LILLY Administration Levothyroxine Sodium 137 mcg 10/20/22 06:30 10/20/22 05:39 Levothyroxine Sodium 137 Mcg Tablet PO 11/19/22 06:29 Not Given DAILYBB LILLY Methylphenidate HCl 10 mg 10/19/22 21:00 10/20/22 08:51 Methylphenidate Hcl 10 Mg Tablet PO 11/02/22 20:59 Not Given BID LILLY Morphine Sulfate 4 mg 10/19/22 18:40 10/20/22 02:27 Morphine Sulfate 4 Mg/Ml 1 Ml Carp\Vial IV 11/02/22 18:39 4 mg Q4H PRN Administration Pain scale 7-10 Ondansetron HCl 4 mg 10/19/22 18:40 10/19/22 22:31 Ondansetron Inj 2 Mg/Ml 2 Ml Vial IV 11/18/22 18:39 4 mg Q6H PRN Administration Nausea Vitamin D 2,000 units 10/20/22 09:00 10/20/22 08:50 Cholecalciferol 1,000 Units 25 Mcg Tab PO 11/19/22 08:59 Not Given QAM LILLY NPO Date Last Intake of Fluids: 10/19/22 Time Last Intake of Fluids: 12:00 Date Last Intake of Solids: 10/19/22 Time Last Intake of Solids: 12:00 Past Medical History Medical History ADHD Bleeding gastric ulcer hx of none since 2017 Circadian rhythm disorder Depression Fibromyalgia GERD without esophagitis History of adenomatous polyp of colon History of allergic drug reaction unsure of medication, happened when receiving injections for back pain, believed to be a preserverative in the medication History of colitis none at present History of COVID-19 October 07, 2021 > home test > fever, body aches, congestion, cough, no further symptoms, or issues Hx of dental abscess under a crown, on amoxicillin at present, will be done with prior to surgery, top left Hypothyroidism Insomnia Kidney stones none at present Left hip pain Leg length discrepancy Obesity (BMI 30.0-34.9) Prediabetes 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 Sacroiliac joint pain Exercise / Class Metabolic Activity II 4-5 Yardwork/Stairs/Walk up hill Past Family History Family History Grandmother (Maternal) Breast cancer Father Pancreatic cancer Sister Nausea and vomiting after administration of anesthetic agent Denies family history of Ovarian cancer Prostate cancer Myocardial infarction Colorectal cancer Past Surgical History Surgical History Gastric bypass status for obesity with revision H/O cystoscopy H/O lithotripsy several History of bilateral tubal ligation History of cholecystectomy History of colonoscopy with polypectomy at age 38 History of esophagogastroduodenoscopy (EGD) S/P carpal tunnel release bilat S/P endometrial ablation S/P right rotator cuff repair [place] teeth extracted Past Anesthesia History No Hx of Anesthesia Complications History of PONV No Hx of PONV Social History Smoking Status: Former smoker Do You Dip or Chew Tobacco: No Hx Alcohol Use: Yes alcohol intake frequency: holidays/special occasions only Hx Substance Use: No substance use type: does not use Physical Exam Vital Signs Last Vital Signs Temp 37.2 C 10/20/22 12:55 Pulse 67 10/20/22 12:55 Resp 16 10/20/22 12:55 BP 123/71 10/20/22 12:55 Pulse Ox 98 10/20/22 12:55 O2 Del Method Room Air 10/20/22 12:55 ENMT Thyromental Distance: > or= 3.5 Finger Breadths Mallampati Class: II Respiratory normal respiratory effort Auscultation: lungs clear to auscultation bilaterally Cardiovascular Rate/Rhythm: regular rate and regular rhythm Psychiatric Orientation: alert and oriented x 3 Testing Laboratory Results 10/20/22 06:22 10/20/22 06:22 Urine Color Yellow 10/19/22 Unknown Urine Appearance Clear (Clear) 10/19/22 Unknown Urine pH 6.0 (4.5-7.5) 10/19/22 Unknown Ur Specific Caroline > 1.045 (1.000-1.030) H 10/19/22 Unknown Urine Protein Negative (Negative) 10/19/22 Unknown Urine Glucose (UA) Negative (Negative) 10/19/22 Unknown Urine Ketones Negative (Negative) 10/19/22 Unknown Urine Nitrite Positive (Negative) A 10/19/22 Unknown Ur Leukocyte Esterase Trace (Negative) H 10/19/22 Unknown Urine WBC (Auto) 1-5 /hpf (0-5) 10/19/22 Unknown Urine RBC (Auto) 0-4 /hpf (0-4) 10/19/22 Unknown U Hyaline Cast (Auto) 1-5 /lpf (0-5) 10/19/22 Unknown U Epithel Cells (Auto) >30 /lpf (0-5) H 10/19/22 Unknown Urine Bacteria (Auto) 3+ (Negative) H 10/19/22 Unknown Blood Type O Positive 10/19/22 14:54 Antibody Screen NEGATIVE 10/19/22 14:54 10/19/22 Unknown Urine Culture - Preliminary Urine,Clean Catch Gram negative bacilli
[2022-10-20] MEDS ORDERED: ONDANSETRON INJ 2 MG/ML 2 ML VIAL IV PRN (13:26)
[2022-10-20] MEDS ORDERED: ePHEDrine sulfate 50 MG/ML AMP IV PRN (13:26)
[2022-10-20] MEDS ORDERED: ATROPINE SULFATE 0.1 MG/ML 10ML SYR IV PRN (13:26)
[2022-10-20] MEDS ORDERED: FAMOTIDINE/PF 20 MG/2 ML VIAL IV ONE (13:27)
[2022-10-20] MEDS ORDERED: LIDOCAINE 2% 2 ML VIAL/AMP(20MG/ML) INFIL ONE (13:53)
[2022-10-20] MEDS ORDERED: PROPOFOL IV EMULSION 10 MG/ML 20 ML VIAL IV ONE ×2 (13:53→14:13)
--- NOTE | 2022-10-20 14:48 | GI REPORT ---
Patient Name: Reece Patel Procedure Date: 10/20/2022 1:24 PM Date of : 1975 Admit Type: Inpatient Age: 47 Gender: Female Attending MD: Jose Estes MD, Procedure: Upper GI endoscopy Providers: Jose Estes MD Referring MD: Khloe Tavares Md Indications: Abdominal pain, Iron deficiency anemia secondary to chronic blood loss, Melena Medicines: Monitored Anesthesia Care Complications: No immediate complications. Estimated blood loss: None. Estimated Blood Loss: Estimated blood loss: none. Procedure: Pre-Anesthesia Assessment: - Prior Anticoagulants: The patient has taken no anticoagulant or antiplatelet agents. - ASA Grade Assessment: III - A patient with severe systemic disease. After obtaining informed consent, the endoscope was passed under direct vision. Throughout the procedure, the patient's blood pressure, pulse, and oxygen saturations were monitored continuously. The Scope was introduced through the mouth, and advanced to the jejunum. The upper GI endoscopy was accomplished without difficulty. The patient tolerated the procedure well. Findings: The examined esophagus was normal. One oozing cratered gastric ulcer with no stigmata of bleeding was found at the anastomosis. Area was successfully injected with 4 mL of a 0.1 mg/mL solution of epinephrine for hemostasis. Coagulation for hemostasis using bipolar probe was successful. For hemostasis, one hemostatic clip was successfully placed. Clip petal cutter: [facility] There was no bleeding at the end of the procedure. The examined jejunum was normal. Impression: - Normal esophagus. - Oozing gastric ulcer with no stigmata of bleeding. Injected. Treated with bipolar cautery. Clip was placed. Clip petal cutter: [facility]. - Normal examined jejunum. - No specimens collected. Recommendation: - [facility]. - Clear liquid diet today. -protonix 40 mg BID for at least 3 months -repeat EGD in 3 months supportive care, IVFs trend h/h, transfuse prn Jose Estes MD 10/20/2022 2:48:25 PM This report has been signed electronically. Note Initiated On: 10/20/2022 1:24 PM Number of Addenda: 0 I attest to the content of the Intraoperative Record and orders documented therein, exceptions below {[id number]}
[2022-10-20] MEDS ORDERED: diphenhydrAMINE Capsule 25 MG CAP PO ONE (15:30)
--- NOTE | 2022-10-20 15:35 | Anesthesiology Progress Note ---
Date of Service October 20, 2022 Anesthesia Post Procedure Vital Signs Vital Signs: Temp Pulse Pulse Resp BP Pulse Ox O2 Del Method 10/20/22 15:08 36.9 C 72 16 133/75 95 Room Air 10/20/22 14:50 62 16 119/70 99 Room Air 10/20/22 14:38 67 16 110/59 L 100 Room Air 10/20/22 14:20 75 12 118/63 99 Room Air 10/20/22 12:55 37.2 C 67 16 123/71 98 Room Air 10/20/22 12:03 36.7 C 64 16 99/58 L 94 Room Air 10/20/22 08:15 57 L 10/20/22 08:01 37.0 C 60 16 111/66 95 Room Air 10/20/22 05:22 36.9 C 67 18 100/62 95 Room Air 10/19/22 21:59 63 10/20/22 00:35 36.8 C 66 18 109/65 97 Room Air 10/19/22 20:33 36.9 C 67 18 105/64 96 Room Air 10/19/22 18:51 65 10/19/22 18:38 36.9 C 73 18 108/70 96 Room Air Pain Intensity Abdomen: Pain Intensity: 8 Transfer of Care Handoff Completed per policy Notes Mental Status: alert / awake / arousable and participated in evaluation Nausea / Vomiting: adequately controlled Pain: adequately controlled Airway Patency, RR, SpO2: stable & adequate BP & HR: stable & adequate Hydration State: stable & adequate Anesthetic Complications: no major complications apparent and Pt Satisfied with anesthetic care
[2022-10-20] MEDS ORDERED: oxyCODONE HCL 10 MG TABCR (OxyCONTIN) PO ONE (16:30)
[2022-10-20 19:06] LABS: Hematocrit (blood only) 24.7 % (37.0-47.0); Hemoglobin 7.6 g/dl (12.0-16.0)
[2022-10-20] MEDS: MAGNESIUM SULFATE / D5W 1 GM/100 ML BAG IV SCH ×2 (19:30→20:55)
[2022-10-20] MEDS: ONDANSETRON INJ 2 MG/ML 2 ML VIAL IV PRN (19:30)
[2022-10-20] MEDS ORDERED: IRON SUCROSE 300 MG in SODIUM CHLORIDE 0.9% 250 ML IV ONE (20:00)
[2022-10-20] MEDS: cloNIDine HCL 0.1 MG TAB PO SCH (20:20)
[2022-10-20] MEDS: DOXEPIN HCL 50 MG CAPSULE PO SCH (20:20)
[2022-10-20] MEDS: DULoxetine HCL 60 MG CAP PO SCH (20:21)
--- NOTE | 2022-10-20 21:28 | Hospitalist Progress Note ---
Date of Service October 20, 2022 Assessment & Plan (1) Acute upper GI bleed: Plan: Acute/unstable/mod to high risk - Admit to [facility] tele - S/P upper endoscopy. - Patient required 1 unit of PRBC before discharge. -Patient did have an ozzing ulcer but this appears to have been clipped. -Ordered venofer, if patient is symptomatic tomorrow, or if hemoglobin drops will consider a unit of PRBC. -Appreciate input from [facility] - IV Protonix bolus of 80mg given and drip started - DC drip and transition to 40mg IV BID - Hydrate with NSS @ 100 ml/hr x 1 liter - IV Zofran and IV APAP - No NSAIDs (2) Acute blood loss anemia: Plan: Acute/unstable - mod to high risk Acute blood loss anemia - CBC reviewed, hgb 7.5 in setting of acute/subacute upper GI bleed, previous hgb 12.7 08/05/22 - Typed and screened, will crossmatch and hold for 2 units - (3) Prediabetes: Plan: Chronic/stable - On Metformin 1000mg BID at home for weight loss and PDM - Hold during hospitalization (received IV contrast) - Does not require BSG monitoring (4) Hypothyroidism: Plan: Chronic/stable - Continue Levothyroxine 137 mcg daily BB (5) GERD without esophagitis: Plan: Chronic/unstable - On PPI at home, given UGIB, converted to IV PPI (6) ADHD: Plan: Chronic/stable - On Methylphenidate 10mg BID on work days (7) Fibromyalgia: Plan: Chronic/stable - Chronic pain syndrome/fibromyalgia - Continue Gabapentin and Duloxetine (8) Depression: Plan: Chronic/stable - Continue Duloxetine, Clonidine, and Doxepin Plan SCD Admission and Anticipated Discharge Date Admission Date: October 19, 2022 Subjective Patient is concerned about her blood work. Patient is requesting blood. Review of Systems Review of Systems: All systems reviewed & are unremarkable except as noted in HPI & below Physical Exam Physical Exam: GENERAL: 47 yo Well-developed, well-nourished WF. AAOx4. NAD. LUNGS: Clear to auscultation bilaterally. No W/R/R. CARDIOVASCULAR: Regular rate and rhythm, systolic murmur noted on examination. No g/r. ABDOMEN: Soft, non-tender and non-distended. BS normoactive x 4 quad. SKIN: Warm, dry, intact. No rashes or lesions. Results & Data Results & Data Vital Signs (Past 12 Hours) Vital Signs Temp Pulse Pulse Resp BP Pulse Ox O2 Del Method 10/20/22 20:09 36.8 C 63 18 109/69 97 Room Air 10/20/22 18:02 36.9 C 80 19 135/78 99 Room Air 10/20/22 16:13 36.4 C L 74 18 105/64 95 Room Air 10/20/22 15:55 69 10/20/22 15:08 36.9 C 72 16 133/75 95 Room Air 10/20/22 14:50 62 16 119/70 99 Room Air 10/20/22 14:38 67 16 110/59 L 100 Room Air 10/20/22 14:20 75 12 118/63 99 Room Air 10/20/22 12:55 37.2 C 67 16 123/71 98 Room Air 10/20/22 12:03 36.7 C 64 16 99/58 L 94 Room Air PG Care Time/CCT Total # of Minutes Spent Total Time Spent with Patient: Total time spent is greater than 50% in coordination of care (as documented) at patient's floor/unit and/or counseling patient: Coding Level of Care Code 29666 SUB INP/OBS CARE 2/35MIN Diagnoses Acute upper GI bleed K92.2 Acute blood loss anemia D62 Prediabetes R73.03 Hypothyroidism E03.9 GERD without esophagitis K21.9 ADHD F90.9 Fibromyalgia M79.7 Depression F32.A
[2022-10-21] MEDS: LEVOTHYROXINE SODIUM 137 MCG TABLET PO SCH (06:12)
[2022-10-21 06:38] LABS: Hematocrit (blood only) 23.8 % (37.0-47.0); Hemoglobin 7.5 g/dl (12.0-16.0); Mean Corpuscular Hemoglobin 27.6 pg (25.0-34.0); Mean Corpuscular Hgb Conc 31.5 g/dL (32.0-36.0); Mean Corpuscular Volume 87.5 fL (80.0-100.0); Mean Platelet Volume 10.1 fL (9.4-12.4); Platelet Count 365 K/uL (130-400); RDW Coefficient of Variation 17.5 % (11.5-14.5); RDW Standard Deviation 55.4 fL (36.4-46.3); Red Blood Count 2.72 M/uL (4.20-5.40); White Blood Count 4.91 K/ul (4.8-10.8)
[2022-10-21 06:55] LABS: BUN Creatinine Ratio 9.8 (10-20); Calcium 8.5 mg/dl (8.6-10.3); Est GFR (African American) 98.1 ml/min; Est GFR (Non-African American) 84.6 ml/min; Potassium 3.8 mmol/L (3.5-5.1)
[2022-10-21] MEDS: METHYLPHENIDATE HCL 10 MG TABLET PO SCH (07:57)
[2022-10-21] MEDS: GABAPENTIN 800 MG TAB PO SCH ×2 (07:58→11:07)
[2022-10-21] MEDS: CHOLECALCIFEROL 1,000 UNITS 25 MCG TAB PO SCH (07:58)
[2022-10-21] MEDS: PANTOprazole 40 MG in SYRINGE 0 ML IV SCH (07:59)
--- NOTE | 2022-10-21 09:33 | Communication Note ---
Date of Service: October 21, 2022 Patient is s/p EGD 10/21/22 with oozing gastric ulcer with no stigmata of bleeding, injected, treated with bipolar cautery, clip placed. 10/21 hgb 7.5. 10/20 hgb 76 patient is feeling much better today and is in good spirits. she had some nausea and abdominal discomfort yesterday but admits today this has resolved. - we discussed avoidance of nsaids. - continue with protonix 40mg bid. - will plan for repeat EGD in 3 months. - recommend follow up office visit in 2 weeks.
[2022-10-21] MEDS ORDERED: SODIUM CHLORIDE 0.9% 250 ML IV PRN (09:53)
[2022-10-21 14:44] LABS: Hematocrit (blood only) 27.4 % (37.0-47.0); Hemoglobin 8.6 g/dl (12.0-16.0)
--- NOTE | 2022-10-23 09:05 | Coding Query ---
CODING QUERY To promote full compliance with coding requirements relating to patient care, provider participation is requested in all cases of bar machine operator uncertainty. Please assist us with the question(s) below: Coding Question(s): Please specify below, in your clinical opinion, regarding the oozing gastric ulcer with documentation on the EGD of, "One oozing cratered gastric ulcer with no stigmata of bleeding was found at the anastomosis", and documentation on GI Consult of, "It is likely that her GI bleeding is secondary to heavy nsaid use with history of bypass", and documentation on ER of, "does have history of gastric bypass that has been complicated in the past with gastrojejunal anastomotic ulcerations". ( ) Likely a complication of the Gastric Bypass ( ) Not complication of the Gastric Bypass (x) Other: Please Specify___possibly a complication of gastric bypass Physician's Response(s): Thank you Rin Mcmullen Principal Diagnosis: "that condition established after study, to be chiefly responsible for occasioning the admission of the patient to the hospital for care." Co-Existing Principal Diagnosis: "when two or more diagnoses equally meet the criteria for principal diagnosis as determined by the circumstances of admission, diagnostic work up, and/or therapy provided, and the Alphabetic Index, Tabular List, or another coding guideline does not provide sequencing direction, any one of the diagnoses may be sequenced first." "When the physician has documented what appears to be a current diagnosis in the body of the record, but has not included the diagnosis in the final diagnostic statement, the physician should be asked whether the diagnosis should be added." (Source Coding [facility] 2 QTR90. p3-4) [facility]
--- NOTE | 2022-10-26 14:09 | Discharge Summary ---
Date of Service October 21, 2022 Admission HPI Per Admitting Provider Reece Romero is a 47 yo RYGB in 2008, bleeding ulcer/PUD s/p clipping in 2016, revision and SHIMON of gastric bypass in Jul 2017 who presents to the ER today c/o dark stools since Wednesday. She has a h/o multiple GI bleeds in the past prior to her bypass revision in 2017. Since then, patient has not had a GI bleed. Her most recent upper and lower scope was performed in December [address] Rodrigez with findings of ulceration at GJ anastomosis site but otherwise benign examination. She admits that due to her chronic pain/fibromyalgia, that she takes a lot of ibuprofen, generally 600mg "a couple of times a day," sometimes more when she is working. She notes that she just completed 5 IV iron infusions, last one was . In addition to her black stools, she has had fatigue, dizziness/lightheadedness, and tachycardia with minimal exertional activities. She subsequently presented for evaluation today where her work up demonstrated a hgb of 7.5 which is a large drop from her last hgb of 12.7 in July of this ye ar. A CT a/p mild gastric wall thickening with submucosal edema seen throughout the excluded portion of the stomach consistent with a nonspecific gastritis. Pt received a liter of NSS, Morphine, Protonix bolus and drip, as well as Zofran and has been referred to the hospitalist service for admission. Principal Diagnosis acute GI bleed Discharge Exam GENERAL: 47 yo Well-developed, well-nourished WF. AAOx4. NAD. LUNGS: Clear to auscultation bilaterally. No W/R/R. CARDIOVASCULAR: Regular rate and rhythm, systolic murmur noted on examination. No g/r. ABDOMEN: Soft, non-tender and non-distended. BS normoactive x 4 quad. SKIN: Warm, dry, intact. No rashes or lesions. Discharge Data Allergies Allergy/AdvReac Type Severity Reaction Status Date / Time No Known Allergies Allergy Unknown Verified 10/19/22 16:40 Consultations 10/19/22 17:07 Consult Gastroenterology Routine 10/19/22 17:10 ED Decision to Admit Stat Procedures Performed Operation Date: 10/20/22 17:15 Actual Procedures p EGD Hemostasis - Jose Estes MD Ordered Studies 10/19/22 15:33 CT Abd and Pelvis [CT abd pelvis IV con only] Stat Hospital Course (1) Acute upper GI bleed: Acute/unstable/mod to high risk - Admit to [facility] tele - S/P upper endoscopy. - Patient required 1 unit of PRBC before discharge. -Patient did have an ozzing ulcer but this appears to have been clipped. -Ordered venofer, if patient is symptomatic tomorrow, or if hemoglobin drops will consider a unit of PRBC. -Appreciate input from [facility] - IV Protonix bolus of 80mg given and drip started - DC drip and transition to 40mg IV BID - will discharge on PO PPI - No NSAIDs (2) Acute blood loss anemia: Acute/unstable - mod to high risk Acute blood loss anemia - CBC reviewed, hgb 7.5 in setting of acute/subacute upper GI bleed, previous hgb 12.7 08/05/22 (3) Prediabetes: Chronic/stable - On Metformin 1000mg BID at home for weight loss and PDM - Hold during hospitalization (received IV contrast) - Does not require BSG monitoring (4) Hypothyroidism: Chronic/stable - Continue Levothyroxine 137 mcg daily BB (5) GERD without esophagitis: Chronic/unstable - On PPI at home, given UGIB, converted to IV PPI (6) ADHD: Chronic/stable - On Methylphenidate 10mg BID on work days (7) Fibromyalgia: Chronic/stable - Chronic pain syndrome/fibromyalgia - Continue Gabapentin and Duloxetine (8) Depression: Chronic/stable - Continue Duloxetine, Clonidine, and Doxepin Plan SCD during course Total Time Total Time Spent Total Time Spent (In Minutes): 32 Discharge Plan Discharge Items Patient Disposition: Home - Self-Care Reason For Visit: UGI BLEED Discharge Diagnosis: UGI bleed Activity: Resume your previous activity Non-emergency contact: Primary Care Provider Call non-emergency contact if: you have any medication questions Follow-up/Referrals: Khloe Tavares MD [Primary Care Provider] - Diet: Regular Addtl Attending Provider Instructions: Please avoid nsaids. Continue with protonix 40mg bid. Plan for repeat EGD in 3 months. Recommend follow up outpatient GI office visit in 2 weeks. Recommend PCP followup in 1 week. Pending Studies at Discharge: No Stand-Alone Forms: My [facility], Smoking Cessation Medications and DC Order Prescriptions: New pantoprazole 40 mg tablet,delayed release (DR/EC) 40 mg PO BID Qty: 60 0RF Continued spironolactone 25 mg tablet 25 mg PO .COMPLEX Qty: 270 3RF Rx Instructions: Take 50mg in the AM and 25mg in the PM clonidine HCl 0.2 mg tablet 0.2 mg PO HS Qty: 90 1RF levothyroxine 137 mcg tablet 137 mcg PO QAM Qty: 90 0RF metformin 500 mg tablet 1,000 mg PO BID Qty: 360 1RF doxepin 50 mg capsule 50 mg PO HS Qty: 90 1RF gabapentin 800 mg tablet 800 mg PO TID Qty: 120 5RF Rx Instructions: Take 1 tablet in the AM, 1 in the afternoon and 2 tablets at bedtime methylphenidate HCl [Ritalin] 10 mg tablet 10 mg PO BID Qty: 60 0RF duloxetine 60 mg capsule,delayed release(DR/EC) 60 mg PO HS Qty: 90 1RF diphenhydramine HCl [Benadryl] 25 mg capsule 75 mg PO HS clindamycin phosphate 1 % gel 1 applic topical BID PRN (Reason: Rash) ferrous sulfate 325 mg (65 mg iron) tablet 325 mg PO QAM cholecalciferol (vitamin D3) 50 mcg (2,000 unit) capsule 50 mcg PO QAM multivitamin Liquid 10 ml PO DAILY Discontinued omeprazole 20 mg capsule,delayed release(DR/EC) 20 mg PO QAM Discharge Orders: Discharge Order (Routine); Ordered 10/21/22 Ordered By: Crescencio Laws Admission Data Admit Date/Time: 10/19/22 17:19 Attending Provider: Crescencio Laws Admit Provider: Evin Abel Primary Care Provider: Khloe Tavares Other Providers: Jose Estes Other Interventions: Discharge Summary Assessment (RN) Last Done: 10/21/22 16:54 Coding Level of Care Code 70134 INP/OBS DISCH >30 MIN Diagnoses Acute upper GI bleed K92.2 Acute blood loss anemia D62 Prediabetes R73.03 Hypothyroidism E03.9 GERD without esophagitis K21.9 ADHD F90.9 Fibromyalgia M79.7 Depression F32.A
== END 2022-10-21 17:19 | disposition home or self-care (01) | DRG 393 ==
LOC: ED 12:49 → INTOOBSV 17:19 → SUATTDRO 17:19 → 2W 17:19 → 2S 10-20 17:54

== ENCOUNTER 2023-04-13 05:33 | Observation (INO) ==
--- NOTE | 2023-03-17 10:31 | PAT Medication Instructions ---
Medication Instructions Date of Service March 17, 2023 Home Medications Medication Instructions Recorded spironolactone 25 mg tablet 25 mg PO .COMPLEX #270 tabs 04/08/22 gabapentin 800 mg tablet 800 mg PO TID #120 tabs 09/02/22 clonidine HCl 0.2 mg tablet 0.2 mg PO HS #90 tabs 11/10/22 metformin 500 mg tablet 1,000 mg PO BID #360 tabs 11/26/22 pantoprazole 40 mg tablet,delayed 40 mg PO BID #180 tabs 01/07/23 release tizanidine 4 mg tablet 4 mg PO BID PRN muscle spasticity 01/20/23 #30 tabs duloxetine 60 mg capsule,delayed 60 mg PO HS #90 caps 01/27/23 release levothyroxine 137 mcg tablet 137 mcg PO QAM #90 tabs 02/04/23 prednisone 10 mg tablet 10 mg PO DAILY #34 tabs 02/11/23 doxepin 50 mg capsule 50 mg PO HS #90 caps 02/22/23 bimatoprost 0.03 % drops with 1 drp topical DAILY #3 mL 03/04/23 applicator, eyelash base (Latisse) methylphenidate HCl 10 mg tablet 10 mg PO BID #60 tabs 03/05/23 (Ritalin) diphenhydramine HCl 25 mg capsule (Benadryl) 75 mg PO HS cholecalciferol (vitamin D3) 50 mcg (2,000 unit) capsule 50 mcg PO QAM ferrous sulfate 325 mg (65 mg iron) tablet 325 mg PO QAM spironolactone 25 mg tablet 25 mg PO .COMPLEX gabapentin 800 mg tablet 800 mg PO TID multivitamin 10 ml PO DAILY clonidine HCl 0.2 mg tablet 0.2 mg PO HS metformin 500 mg tablet 1,000 mg PO BID pantoprazole 40 mg tablet,delayed release 40 mg PO BID tizanidine 4 mg tablet 4 mg PO BID PRN duloxetine 60 mg capsule,delayed release 60 mg PO HS levothyroxine 137 mcg tablet 137 mcg PO QAM prednisone 10 mg tablet 10 mg PO DAILY doxepin 50 mg capsule 50 mg PO HS bimatoprost 0.03 % drops with applicator, eyelash base (Latisse) 1 drp topical DAILY methylphenidate HCl 10 mg tablet (Ritalin) 10 mg PO BID Continue as directed prednisone 10 mg tablet 10 mg PO DAILY DO NOT take the morning of surgery cholecalciferol (vitamin D3) 50 mcg (2,000 unit) capsule 50 mcg PO QAM ferrous sulfate 325 mg (65 mg iron) tablet 325 mg PO QAM spironolactone 25 mg tablet 25 mg PO .COMPLEX multivitamin 10 ml PO DAILY metformin 500 mg tablet 1,000 mg PO BID bimatoprost 0.03 % drops with applicator, eyelash base (Latisse) 1 drp topical DAILY methylphenidate HCl 10 mg tablet (Ritalin) 10 mg PO BID Take morning of surgery With a small sip of water, OTHERWISE NOTHING TO EAT OR DRINK AFTER MIDNIGHT: gabapentin 800 mg tablet 800 mg PO TID pantoprazole 40 mg tablet,delayed release 40 mg PO BID tizanidine 4 mg tablet 4 mg PO BID PRN(if needed) levothyroxine 137 mcg tablet 137 mcg PO QAM Take evening before surgery diphenhydramine HCl 25 mg capsule (Benadryl) 75 mg PO HS gabapentin 800 mg tablet 800 mg PO TID clonidine HCl 0.2 mg tablet 0.2 mg PO HS metformin 500 mg tablet 1,000 mg PO BID pantoprazole 40 mg tablet,delayed release 40 mg PO BID tizanidine 4 mg tablet 4 mg PO BID PRN(if needed) duloxetine 60 mg capsule,delayed release 60 mg PO HS doxepin 50 mg capsule 50 mg PO HS methylphenidate HCl 10 mg tablet (Ritalin) 10 mg PO BID Other Notes If you have any questions please call us at [phone] or [phone] or [phone] or [phone]
--- NOTE | 2023-03-19 08:58 | Anesthesiology Consultation ---
Date of Service March 19, 2023 Assessment & Plan (1) Encounter for pre-operative examination: - anemia H&H: . PTT elevated at 34 and platelets at 584. Awaiting [place] PCP response to workload note. Chart Review Chart Review: Pending: Refer to Additional Notes / Consult section and Patient seen in Pre Admission Testing Teaching & Discussion Pre-Anesthesia Teaching/Discussion Notes: Instructed NPO after midnight before surgery, except medications with 15 cc of water. Medication instructions provided according to the PAT guidelines. History Surgery Operation Date: 04/13/23 07:15 Proposed Procedures p C5-C6, C6-C7 Anterior Cervical Disc Arthroplasty - Tanvir Moeller MD Height/Weight Height: 5 ft 7 in Weight: 73.6 kg Allergies Allergy/AdvReac Type Severity Reaction Status Date / Time No Known Allergies Allergy Unknown Verified 03/16/23 08:03 Medications Home Medications Medication Instructions Recorded Confirmed Last Taken diphenhydramine HCl 25 mg capsule 75 mg PO HS 06/27/21 03/16/23 02/09/23 (Benadryl) cholecalciferol (vitamin D3) 50 50 mcg PO QAM 01/19/22 03/16/23 02/09/23 mcg (2,000 unit) capsule ferrous sulfate 325 mg (65 mg 325 mg PO QAM 01/19/22 03/16/23 02/09/23 iron) tablet spironolactone 25 mg tablet 25 mg PO .COMPLEX #270 tabs 04/08/22 03/16/23 02/09/23 gabapentin 800 mg tablet 800 mg PO TID #120 tabs 09/02/22 03/16/23 02/09/23 multivitamin 10 ml PO DAILY 10/19/22 03/16/23 02/09/23 clonidine HCl 0.2 mg tablet 0.2 mg PO HS #90 tabs 11/10/22 03/16/23 02/09/23 metformin 500 mg tablet 1,000 mg PO BID #360 tabs 11/26/22 03/16/23 02/09/23 pantoprazole 40 mg tablet,delayed 40 mg PO BID #180 tabs 01/07/23 03/16/23 02/09/23 release tizanidine 4 mg tablet 4 mg PO BID PRN muscle spasticity 01/20/23 03/16/23 02/09/23 #30 tabs duloxetine 60 mg capsule,delayed 60 mg PO HS #90 caps 01/27/23 03/16/23 02/09/23 release levothyroxine 137 mcg tablet 137 mcg PO QAM #90 tabs 02/04/23 03/16/23 02/09/23 prednisone 10 mg tablet 10 mg PO DAILY #34 tabs 02/11/23 03/16/23 Unknown doxepin 50 mg capsule 50 mg PO HS #90 caps 02/22/23 03/16/23 Unknown bimatoprost 0.03 % drops with 1 drp topical DAILY #3 mL 03/04/23 03/16/23 Unknown applicator, eyelash base (Latisse) methylphenidate HCl 10 mg tablet 10 mg PO BID #60 tabs 03/05/23 03/16/23 Unknown (Ritalin) Past Medical History Medical History (Updated 03/19/23 @ 11:56 by Amanda Sanford PA-C) ADHD Anemia hgb 7-10 over past 5 months Chronic neck pain Depression Fibromyalgia GERD without esophagitis controlled, stable per pt History of adenomatous polyp of colon History of allergic drug reaction unsure of medication, happened when receiving injections for back pain, believed to be a preservative in the medication-rash History of blood transfusion in setting of gastric ulcer per pt History of colitis none at present History of gastric ulcer 09/2022 History of kidney stones Hx of dental abscess 01/19/22, under a crown, completed amoxicillin, top left- s/p extraction 10/2022 Hypothyroidism Prediabetes on metformin Sacroiliac joint pain Patient denies h/o stroke, seizures, heart attack, heart failure, HTN, or blood clots/DVTs. Exercise / Class Metabolic Activity II 4-5 Yardwork/Stairs/Walk up hill (denies chest discomfort or shortness of breath with 1 FOS) Past Family History Family History Grandmother (Maternal) Breast cancer Father Pancreatic cancer Sister Nausea and vomiting after administration of anesthetic agent Denies family history of Ovarian cancer Prostate cancer Myocardial infarction Colorectal cancer Past Surgical History Surgical History Gastric bypass status for obesity with revision H/O cystoscopy H/O lithotripsy several History of bilateral tubal ligation History of cholecystectomy History of colonoscopy with polypectomy at age 38 History of esophagogastroduodenoscopy (EGD) S/P carpal tunnel release bilat S/P endometrial ablation S/P right rotator cuff repair [place] teeth extracted Past Anesthesia History No Hx of Anesthesia Complications and Other (sister with PONV) History of PONV History of PONV (denies needing scop patch) and Hx of Motion Sickness Social History Smoking Status: Former smoker Do You Dip or Chew Tobacco: No Smoking End Date: 2 yr ago Hx Alcohol Use: Yes alcohol intake frequency: holidays/special occasions only Hx Substance Use: No substance use type: does not use Review of Systems Patient denies chest pain, shortness of breath, dyspnea on exertion, snoring, witnessed apneas, fever, chills, cough, wheezing, dizziness, lightheadedness, presyncope or palpitations. Physical Exam Vital Signs Vitals BP 97/63 automatic (Pt states this is her typical BP reading) manual of same arm: 102/63 P 74 TEMP 98.5 SP02 99% on RA RESP 18 Physical Patient resting comfortably in chair in no acute distress, alert and oriented, responding appropriately throughout visit Full cervical extension range of motion without pain TMD 3.5 finger breadths Mallampati Score 2 Dentition: several crowns, denies chipped or loose teeth, caps, implants or bridges Lungs: normal respiratory effort. Good air movement, clear throughout to auscultation, no adventitious breath sounds Cardiac: regular rate and rhythm, no murmurs noted Carotid arteries: negative bruit bilat Lab Results Anesthesia Preop Results Results Anesthesia Widget: WBC 6.31 K/ul (4.8-10.8) 03/19/23 Hgb 9.8 g/dl (12.0-16.0) L 03/19/23 Hct 32.0 % (37.0-47.0) L 03/19/23 Plt 584 K/uL (130-400) H 03/19/23 Na 137 mmol/L (136-145) 03/19/23 K 3.8 mmol/L (3.5-5.1) 03/19/23 Cl 104 mmol/L (98-107) 03/19/23 CO2 26 mmol/L (21-32) 03/19/23 BUN 30 mg/dl (6-23) H 03/19/23 Creat 0.91 mg/dl (0.6-1.2) 03/19/23 Glucose Level 106 mg/dl (70-99(Fasting)) H 03/19/23 PT 10.9 Seconds (9.0-12.0) 03/19/23 PTT 34.2 Seconds (21.0-31.0) H 03/19/23 INR 1.0 (0.9-1.1) 03/19/23 HA1c 5.6 % (4.5-5.6) 03/19/23 Blood Type O Positive 03/19/23 Antibody Screen NEGATIVE 03/19/23 Testing Electrocardiogram Date: 03/19/23 NSR, rate 66 bpm Cervical Spine Date: 10/01/22 MRI 1. Multilevel cervical spondylosis as above. See discussion for detailed level by level analysis. 2. The cervical cord is normal in morphology and signal intensity. 3. No destructive bony process is seen. Other Testing Abdomen pelvis CT 10/19/22 1. The patient is status post Nini-en-Y gastric bypass. There is mild gastric wall thickening with submucosal edema seen throughout the excluded portion of the stomach. This is consistent with a nonspecific gastritis. 2. No evidence for bowel obstruction. 3. Normal appendix. 4. Left-sided nephrolithiasis. No hydronephrosis. Cardiac event monitor 06/28/22 Heart block occurred 1 time, the most severe 1, slowest 64 bpm 293 PACs with PAC burden of < 1% 10,604 PVCs with PVC burden of 2%
[2023-04-13] MEDS ORDERED: LR 15ML/HR IV SCH (06:00)
[2023-04-13] MEDS ORDERED: ceFAZolin 2000MG 2,000 MG/15 ML SYR IV SCH (06:00)
[2023-04-13] MEDS ORDERED: SODIUM CHLORIDE 0.9% 1,000 ML IV SCH (06:00)
[2023-04-13] MEDS ORDERED: LR 60ML/HR IV SCH (06:00)
[2023-04-13] MEDS ORDERED: THROMBIN 5000 UNITS KIT ONE ×2 (06:40→08:09)
[2023-04-13] MEDS ORDERED: VANCOMYCIN HCL 1000MG/20ML VIAL ONE (06:40)
[2023-04-13] MEDS ORDERED: GELATIN SPONGE 12-7MM ONE (06:40)
[2023-04-13] MEDS ORDERED: MIDAZOLAM HCL 1 MG/ML 2ML VIAL ONE (06:41)
[2023-04-13] MEDS ORDERED: LIDOCAINE 2% 2 ML VIAL/AMP(20MG/ML) INFIL ONE (06:41)
[2023-04-13] MEDS ORDERED: DEXAMETHASONE SOD INJ 4 MG/ML VIAL ONE (06:41)
[2023-04-13] MEDS ORDERED: ROCURONIUM BROMIDE 10 MG/ML 5 ML VIAL IV ONE ×3 (06:41→09:53)
[2023-04-13] MEDS ORDERED: NEOSTIGMINE METHYLSULFATE 1 MG/ML 10ML VIAL ONE (06:41)
[2023-04-13] MEDS ORDERED: fentaNYL citrate PF 100 MCG/2 ML VIAL ONE (06:41)
[2023-04-13] MEDS ORDERED: ONDANSETRON INJ 2 MG/ML 2 ML VIAL ONE ×2 (06:41→11:38)
[2023-04-13] MEDS ORDERED: GLYCOPYRROLATE 0.2 MG/ML VIAL ONE (06:41)
[2023-04-13] MEDS ORDERED: PROPOFOL IV EMULSION 10 MG/ML 20 ML VIAL IV ONE (06:41)
[2023-04-13] MEDS ORDERED: FLUMAZENIL 0.1 MG/1 ML 10 ML VIAL IV PRN (06:51)
[2023-04-13] MEDS ORDERED: PROMETHAZINE HCL 12.5 MG in SODIUM CHLORIDE 0.9% 50 ML IV PRN ×2 (06:51→19:31)
[2023-04-13] MEDS ORDERED: ONDANSETRON INJ 2 MG/ML 2 ML VIAL IV PRN ×2 (06:51→19:31)
[2023-04-13] MEDS ORDERED: ATROPINE SULFATE 0.1 MG/ML 10ML SYR IV PRN (06:51)
[2023-04-13] MEDS ORDERED: ePHEDrine sulfate 50 MG/ML AMP IV PRN (06:51)
[2023-04-13] MEDS ORDERED: NALOXONE HCL 0.4 MG/1 ML VIAL/CARP IV PRN ×2 (06:51→19:31)
[2023-04-13] MEDS ORDERED: ACETAMINOPHEN 1000 MG/100 ML IV IV ONE (06:53)
[2023-04-13] MEDS ORDERED: KETAMINE 50 MG/5 ML SYRINGE ONE (06:53)
[2023-04-13] MEDS ORDERED: FAMOTIDINE/PF 20 MG/2 ML VIAL IV ONE (06:53)
[2023-04-13] MEDS ORDERED: DexMEDEtomidine HCL IV 100 MCG/ML VIAL IV ONE (06:53)
[2023-04-13] MEDS ORDERED: ALBUMIN HUMAN 5% 12.5 GM/250 ML VIAL IV ONE (07:13)
--- NOTE | 2023-04-13 07:14 | History & Physical Bridge Note ---
Date of Service April 13, 2023 History & Physical Bridge Note I have examined the patient, reviewed the History & Physical and in the interval since the performance of the History & Physical I have noted the following changes of clinical significance: no changes noted
[2023-04-13] MEDS ORDERED: PHENYLEPHRINE 100MCG/ML 10ML SYR IV ONE (08:24)
[2023-04-13] MEDS ORDERED: ePHEDrine sulfate 50 MG/ML AMP ONE (08:37)
[2023-04-13] MEDS ORDERED: FLOSEAL HEMOSTATIC MATRIX 5ML TOP ONE (10:19)
[2023-04-13] MEDS ORDERED: SUGAMMADEX SODIUM 200 MG/2 ML VIAL IV ONE (11:50)
[2023-04-13] MEDS ORDERED: PROMETHAZINE HCL INJ 25 MG/ML 1 ML VIAL ONE (12:05)
[2023-04-13] MEDS ORDERED: SODIUM CHLORIDE 0.9% 50 ML BAG ONE (12:05)
[2023-04-13] MEDS: fentaNYL citrate PF 100 MCG/2 ML VIAL IV PRN ×4 (12:15→12:30)
--- NOTE | 2023-04-13 12:22 | Post Operative Brief Note ---
PG Immediate Post Op with CF Date of Surgery April 13, 2023 Pre & Post Diagnosis Operation Date: 04/13/23 07:15 Pre-Op Diagnosis: Cervical Disc Degneration. Cervical Stenosis Post-Op Diagnosis: Cervical Disc Degneration. Cervical Stenosis I identified the patient and participated in the time-out.: Yes Procedure Operation Date: 04/13/23 07:15 Actual Procedures p C5-C6, C6-C7 Anterior Cervical Disc Arthroplasty(Not Applicable) - Tanvir Moeller MD Surgeon Tanvir Moeller MD Web Development Instructor none Estimated Blood Loss 20 Findings Consistent with Post-Op Diagnosis Specimens Specimen Description: no specimen Drains Rondon Catheter (inserted on 1st attempt without difficulty, return urine noted in catheter tubing prior to inflating balloon)
[2023-04-13] MEDS ORDERED: traMADol HCL 50 MG TABLET PO PRN (12:23)
[2023-04-13] MEDS ORDERED: HYDROmorphone HCL 2 MG TAB PO PRN (12:23)
[2023-04-13] MEDS ORDERED: oxyCODONE/ACETAMINOPHEN 5mg/325mg TAB PO PRN ×3 (12:23→19:31)
--- NOTE | 2023-04-13 12:29 | Fluoroscopy Report ---
FL cervical 2-3V CLINICAL HISTORY: C5-6, C6-7 ANTERIOR ARTHROPLASTY COMPARISON STUDY: MRI cervical spine 10/01/2022 FLUOROSCOPY TIME: 163.5 seconds FLUOROSCOPY IMAGES: 15 EXPOSURE DOSE: 36.32 mGy FINDINGS: Endotracheal tube is present. Anterior approach discectomy changes at C5-C6 and C6-C7. Mult ilevel spondylotic spurring with intervertebral disc space narrowing and facet arthrosis. Expected po stoperative soft tissue swelling. No unexpected opaque foreign bodies. Note that the images were subm itted following completion of the surgery. IMPRESSION: Fluoroscopic assistance as above. ACT 112: Negative or not required by law. Electronically signed by: Justin Jessica M.D. 04/13/2023 12:28 PM
[2023-04-13] MEDS: HYDROmorphone INJ 1 MG/ML SYRINGE IV PRN ×7 (12:34→21:09)
--- NOTE | 2023-04-13 13:49 | Anesthesiology Progress Note ---
Date of Service April 13, 2023 Anesthesia Post Procedure Vital Signs Vital Signs: Temp Pulse Pulse Resp BP Pulse Ox O2 Del Method 04/13/23 13:40 71 15 123/69 96 Nasal Cannula 04/13/23 13:30 76 15 117/72 97 Nasal Cannula 04/13/23 13:20 36.2 C L 78 16 110/79 96 Nasal Cannula 04/13/23 13:10 85 12 116/75 97 Nasal Cannula 04/13/23 13:00 83 14 120/79 95 Nasal Cannula 04/13/23 12:50 83 13 125/74 95 Nasal Cannula 04/13/23 12:40 75 12 121/70 96 Nasal Cannula 04/13/23 12:30 77 13 117/72 96 Nasal Cannula 04/13/23 12:20 74 15 116/77 96 Oxymask 04/13/23 12:10 73 17 119/75 96 Oxymask 04/13/23 12:04 36.6 C 80 13 126/75 91 Oxymask 04/13/23 06:10 36.7 C 62 18 94/53 L 98 Room Air O2 Flow Rate 04/13/23 13:40 2 04/13/23 13:30 2 04/13/23 13:20 3 04/13/23 13:10 3 04/13/23 13:00 3 04/13/23 12:50 3 04/13/23 12:40 4 04/13/23 12:30 4 04/13/23 12:20 6 04/13/23 12:10 6 04/13/23 12:04 6 04/13/23 06:10 Pain Intensity Left Arm: Pain Intensity: 4 Bilateral Neck: Pain Intensity: 5 Transfer of Care Handoff Completed per policy Notes Mental Status: alert / awake / arousable Patient Amnestic to Procedure: Yes Nausea / Vomiting: adequately controlled Pain: adequately controlled Airway Patency, RR, SpO2: stable & adequate BP & HR: stable & adequate Hydration State: stable & adequate Anesthetic Complications: no major complications apparent
[2023-04-13] MEDS ORDERED: PROMETHAZINE HCL 6.25 MG in SODIUM CHLORIDE 0.9% 50 ML IV STA (14:46)
[2023-04-13] MEDS ORDERED: oxyCODONE HCL IR 5 MG TAB (IMMEDIATE RELEASE) PO STA (15:02)
[2023-04-13] MEDS ORDERED: MAGNESIUM HYDROXIDE SUSP 30 ML UDC PO PRN (19:31)
[2023-04-13] MEDS ORDERED: LORazepam 0.5 MG TAB PO PRN (19:31)
[2023-04-13] MEDS ORDERED: METOCLOPRAMIDE HCL INJ 5 MG/ML 2 ML VIAL IV PRN (19:31)
[2023-04-13] MEDS ORDERED: hydrOXYzine HCl 25 MG TAB PO PRN (19:31)
[2023-04-13] MEDS ORDERED: SOD PHOSPHATE/SOD BIPHOSPHATE ENEMA 132 ML BTL PR PRN (19:31)
[2023-04-13] MEDS ORDERED: ACETAMINOPHEN 1,000 MG/100 ML VIAL IV PRN (19:31)
[2023-04-13] MEDS ORDERED: ONDANSETRON 4 MG OD TAB PO PRN (19:31)
[2023-04-13] MEDS ORDERED: dexAMETHasone 8 MG in SYRINGE 0 ML IV PRN (19:31)
[2023-04-13] MEDS ORDERED: RACEPINEPHRINE 2.25% NEBU SOLN 0.5 ML VIAL INH PRN (19:31)
[2023-04-13] MEDS ORDERED: diphenhydrAMINE Capsule 25 MG CAP PO PRN (19:31)
[2023-04-13] MEDS ORDERED: DO NOT ADMINISTER PNEUMOCOCCAL VACCINE PRN (19:31)
[2023-04-13] MEDS ORDERED: bisacodyL 10 MG SUPP PR PRN (19:31)
[2023-04-13] MEDS ORDERED: DO NOT ADMINISTER FLU VACCINE PRN (19:31)
[2023-04-13] MEDS ORDERED: ACETAMINOPHEN 500 MG TAB PO PRN (19:31)
[2023-04-13] MEDS ORDERED: ALUMINUM/MAGNESIUM SUSP 30 ML UDC PO PRN (19:31)
[2023-04-13] MEDS ORDERED: HYDROmorphone INJ 0.5 MG/0.5 ML SYR IV PRN (19:31)
[2023-04-13] MEDS ORDERED: LORazepam 0.5 MG in SYRINGE 0.25 ML IV PRN (19:31)
[2023-04-13] MEDS ORDERED: FAMOTIDINE 20 MG TAB PO PRN (19:31)
[2023-04-13] MEDS ORDERED: LACTATED RINGER'S 1,000 ML IV SCH (19:45)
--- NOTE | 2023-04-13 20:35 | Hospitalist Consultation ---
Date of Consultation April 13, 2023 Assessment & Plan (1) Chronic anemia: (2) Prediabetes: (3) Hypothyroidism: (4) GERD without esophagitis: (5) ADHD: (6) Fibromyalgia: (7) Insomnia: (8) Depression: Plan Pt is a 47 yo female s/p p C5-C6, C6-C7 Anterior Cervical Disc Arthroplasty with a past med hx of GERD, hypothyroidism, insomnia, fibromyalgia, ADHD, depression. Consulted for medical management. Chronic anemia - on outpatient iron infusions - hgb 9.8, will do daily CBC - continue oral iron Prediabetes - will hold metformin while inpatient - will do SSI CF 50, CR 25 Hypothyroidism - continue levothyroxine 137 mcg GERD - continue pantoprazole 40 mg - continue famotidine 20 mg Insomnia - continue daily Benadryl 50 HS - continue clonidine HS Allergies - continue Gayatri daily Fibromyalgia, Depression - continue duloxetine - continue doxepin - continue gabapentin ADHD - will defer Ritalin while inpatient DVT prophylaxis: will defer for now, pt very low risk Supervising Physician Co-Signing Physician Notes Patient seen and examined, chart reviewed, case discussed with Dr. Saldana and I agree with the assessment and plan as above History of Present Illness Reason for Consultation: Medical management Requesting Physician: Dr. Tanvir Moeller MD Attending Physician: Tanvir Moeller MD History of Present Illness Pt is a 47 yo female s/p p C5-C6, C6-C7 Anterior Cervical Disc Arthroplasty with a past med hx of GERD, hypothyroidism, insomnia, fibromyalgia, ADHD, depression. Consulted for medical management. Pt states that she is feeling fine after her surgery. She states that she had some jello for dinner without any nausea or vomiting. No complaints of pain at this time. No questions or complaints at this time, doing well. Allergies Allergy/AdvReac Type Severity Reaction Status Date / Time No Known Allergies Allergy Unknown Verified 04/13/23 05:52 Home Medications Medication Instructions Recorded Confirmed Type diphenhydramine HCl 25 mg capsule 75 mg PO HS 06/27/21 04/13/23 History (Benadryl) cholecalciferol (vitamin D3) 50 50 mcg PO QAM 01/19/22 04/13/23 History mcg (2,000 unit) capsule ferrous sulfate 325 mg (65 mg 325 mg PO QAM 01/19/22 04/13/23 History iron) tablet spironolactone 25 mg tablet 25 mg PO .COMPLEX #270 tabs 04/08/22 04/13/23 Rx gabapentin 800 mg tablet 800 mg PO TID #120 tabs 09/02/22 04/13/23 Rx multivitamin 10 ml PO DAILY 10/19/22 04/13/23 History clonidine HCl 0.2 mg tablet 0.2 mg PO HS #90 tabs 11/10/22 04/13/23 Rx metformin 500 mg tablet 1,000 mg (2 x 500 mg) PO BID #360 11/26/22 04/13/23 Rx tabs pantoprazole 40 mg tablet,delayed 40 mg PO BID #180 tabs 01/07/23 04/13/23 Rx release tizanidine 4 mg tablet 4 mg PO BID PRN muscle spasticity 01/20/23 04/13/23 Rx #30 tabs duloxetine 60 mg capsule,delayed 60 mg PO HS #90 caps 01/27/23 04/13/23 Rx release doxepin 50 mg capsule 50 mg PO HS #90 caps 02/22/23 04/13/23 Rx methylphenidate HCl 10 mg tablet 10 mg PO BID #60 tabs 03/05/23 04/13/23 Rx (Ritalin) bimatoprost 0.03 % drops with 1 drp topical DAILY #3 mL 03/25/23 04/13/23 Rx applicator, eyelash base (Latisse) levothyroxine 137 mcg tablet 137 mcg PO DAILY 04/13/23 04/13/23 History oxycodone-acetaminophen 5 mg-325 1 tab PO Q6H PRN pain #20 tabs 04/13/23 Rx mg tablet Patient History Medical History (Updated 04/14/23 @ 07:41 by Cynthia Velazquez PA-C) Anemia hgb 7-10 over past 5 months History of blood transfusion in setting of gastric ulcer per pt History of kidney stones Chronic neck pain Prediabetes on metformin History of colitis none at present Hx of dental abscess 01/19/22, under a crown, completed amoxicillin, top left- s/p extraction 10/2022 Hypothyroidism History of allergic drug reaction unsure of medication, happened when receiving injections for back pain, believed to be a preservative in the medication-rash Sacroiliac joint pain History of gastric ulcer 09/2022 GERD without esophagitis controlled, stable per pt History of adenomatous polyp of colon ADHD Fibromyalgia Depression Surgical History History of bilateral tubal ligation History of colonoscopy with polypectomy at age 38 S/P endometrial ablation History of cholecystectomy [place] teeth extracted History of esophagogastroduodenoscopy (EGD) H/O lithotripsy several H/O cystoscopy S/P right rotator cuff repair S/P carpal tunnel release bilat Gastric bypass status for obesity with revision Family History Grandmother (Maternal) Breast cancer Father Pancreatic cancer Sister Nausea and vomiting after administration of anesthetic agent Denies family history of Ovarian cancer Prostate cancer Myocardial infarction Colorectal cancer Social History Smoking Status: Former smoker Tobacco Type: Cigarettes Second Hand Exposure: No; Do You Dip or Chew Tobacco: No; Hx Alcohol Use: Yes Hx Substance Use: No Preferred Language: Japanese Digital Coordinator Required: No Beliefs That Will Affect Care: None marital status: Current Living Situation: Family 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 occupational status: 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 Feels Safe at Home: Yes Childhood Exposure to Second-Hand Smoke: No Dental Care, Regularly: Yes Physical Activity Frequency: 3-4 Times per Week Seatbelt Use: always Sunscreen Use: Yes Assistive Devices: None Review of Systems Review of Systems: Cardio: denies chest pain, Resp: denies shortness of breath, GI: denies abdominal pain, nausea, vomiting, Physical Exam Physical Exam: General:Alert and oriented, no acute distress, c collar in place HEENT: Normocephalic, moist oral mucosa, Cardio: Regular rate and rhythm, no murmur, Resp:Lungs clear to auscultation b/l, no wheezes or rhonchi, GI: Soft, bowel sounds active Skin: Warm, pink, dry, Psych: Mood-affect congruence. Results & Data Results & Data Vital Signs (Past 12 Hours) Vital Signs Temp Pulse Pulse Resp BP Pulse Ox O2 Del Method 04/13/23 19:57 76 18 97 Room Air 04/13/23 19:13 36.7 C 67 16 115/74 98 Room Air 04/13/23 18:00 36.4 C L 85 16 109/67 98 Room Air 04/13/23 16:50 36.5 C 63 18 110/70 94 Room Air 04/13/23 16:05 36.6 C 67 18 113/72 97 Room Air 04/13/23 15:35 66 18 111/67 94 Room Air 04/13/23 15:05 36.6 C 66 18 112/72 95 Room Air 04/13/23 14:50 70 18 116/68 93 Room Air 04/13/23 14:35 36.7 C 70 18 122/75 93 Room Air 04/13/23 14:35 70 18 122/75 95 Room Air 04/13/23 14:20 36.7 C 69 16 121/67 93 Room Air 04/13/23 14:05 36.7 C 71 14 117/75 93 Room Air 04/13/23 13:50 80 13 126/73 96 Nasal Cannula 04/13/23 13:40 71 15 123/69 96 Nasal Cannula 04/13/23 13:30 76 15 117/72 97 Nasal Cannula 04/13/23 13:20 36.2 C L 78 16 110/79 96 Nasal Cannula 04/13/23 13:10 85 12 116/75 97 Nasal Cannula 04/13/23 13:00 83 14 120/79 95 Nasal Cannula 04/13/23 12:50 83 13 125/74 95 Nasal Cannula 04/13/23 12:40 75 12 121/70 96 Nasal Cannula 04/13/23 12:30 77 13 117/72 96 Nasal Cannula 04/13/23 12:20 74 15 116/77 96 Oxymask 04/13/23 12:10 73 17 119/75 96 Oxymask 04/13/23 12:04 36.6 C 80 13 126/75 91 Oxymask O2 Flow Rate 04/13/23 19:57 04/13/23 19:13 04/13/23 18:00 04/13/23 16:50 04/13/23 16:05 04/13/23 15:35 04/13/23 15:05 04/13/23 14:50 04/13/23 14:35 04/13/23 14:35 04/13/23 14:20 04/13/23 14:05 04/13/23 13:50 2 04/13/23 13:40 2 04/13/23 13:30 2 04/13/23 13:20 3 04/13/23 13:10 3 04/13/23 13:00 3 04/13/23 12:50 3 04/13/23 12:40 4 04/13/23 12:30 4 04/13/23 12:20 6 04/13/23 12:10 6 04/13/23 12:04 6 Resident Activity Tracking Resident Involvement: Resident Care Provided Care Provided: Adult Hospital Medicine
[2023-04-13] MEDS ORDERED: cloNIDine HCL 0.1 MG TAB PO SCH (21:00)
[2023-04-13] MEDS ORDERED: SPIRONOLACTONE 25 MG TAB PO SCH (21:00)
[2023-04-13] MEDS ORDERED: DOXEPIN HCL 50 MG CAPSULE PO SCH (21:00)
[2023-04-13] MEDS ORDERED: DOCUSATE SODIUM/SENNA 50/8.6MG TAB PO SCH (21:00)
[2023-04-13] MEDS ORDERED: GABAPENTIN 800 MG TAB PO SCH (21:00)
[2023-04-13] MEDS ORDERED: diphenhydrAMINE Capsule 25 MG CAP PO SCH (21:00)
[2023-04-13] MEDS ORDERED: DULoxetine HCL 60 MG CAP PO SCH (21:00)
[2023-04-13] MEDS ORDERED: DEXTROSE 50% 50 ML SYRINGE IV PRN (21:12)
[2023-04-13] MEDS ORDERED: GLUCOSE 10 TAB/TUBE PO PRN (21:12)
[2023-04-13] MEDS ORDERED: CARBOHYDRATES FOR HYPOGLYCEMIA PO PRN (21:12)
[2023-04-13] MEDS: METHYLPHENIDATE HCL 10 MG TABLET PO SCH (21:12)
[2023-04-13] MEDS ORDERED: GLUCAGON FOR INJ 1 MG VIAL SQ PRN (21:12)
[2023-04-13] MEDS ORDERED: GLUCOSE 40% GEL 15 GM TUBE PO PRN (21:12)
[2023-04-13] MEDS: tiZANidine HCL 4 MG TABLET PO PRN (21:17)
[2023-04-13] MEDS: PANTOprazole 40 MG TAB PO SCH (21:17)
[2023-04-13] MEDS ORDERED: COUGH DROP (SUGAR FREE) LOZ 24 LOZ/1 BOX BUCCAL ONE (23:25)
[2023-04-14] MEDS: HYDROmorphone INJ 1 MG/ML SYRINGE IV PRN ×4 (01:33→11:45)
[2023-04-14] MEDS: POLYETHYLENE (MIRALAX) 17 GM PACK PO SCH ×2 (06:17→12:04)
[2023-04-14] MEDS ORDERED: LEVOTHYROXINE SODIUM 137 MCG TABLET PO SCH (06:30)
[2023-04-14] MEDS ORDERED: KETOROLAC 30 MG/ML VIAL IV ONE (06:40)
[2023-04-14 07:08] LABS: Basophils # (auto) 0.02 K/uL (0.00-0.20); Basophils % (auto) 0.3 %; Eosinophils # (auto) 0.12 K/uL (0.00-0.50); Eosinophils % (auto) 1.6 %; Hematocrit (blood only) 28.5 % (37.0-47.0); Hemoglobin 8.8 g/dl (12.0-16.0); Immature Granulocytes # (auto) 0.01 K/uL (0.01-0.20); Immature Granulocytes % (auto) 0.1 %; Lymphocytes % (auto) 37.7 %; Mean Corpuscular Hemoglobin 20.5 pg (25.0-34.0); Mean Corpuscular Hgb Conc 30.9 g/dL (32.0-36.0); Mean Corpuscular Volume 66.4 fL (80.0-100.0); Monocytes # (auto) 0.77 K/uL (0.11-0.59); Monocytes % (auto) 10.4 %; Neutrophils % (auto) 49.9 %; RDW Coefficient of Variation 19.9 % (11.5-14.5); RDW Standard Deviation 41.4 fL (36.4-46.3); Red Blood Count 4.29 M/uL (4.20-5.40); White Blood Count 7.42 K/ul (4.8-10.8)
[2023-04-14 07:14] LABS: Mean Platelet Volume 9.4 fL (9.4-12.4); Platelet Count 388 K/uL (130-400)
--- NOTE | 2023-04-14 07:39 | Orthopedic Progress Note ---
Date of Service April 14, 2023 Subjective Pt notes some axial and shoulder symptoms/achiness so she stayed overnight. Dressing with minimal drainage. Impression / Plan: post op day 1 one from cervical disc arthroplasty, will mobilize with PT/OT today and DC with follow up in 2 weeks. Review of Systems All systems reviewed & are unremarkable except as noted in HPI & below. Physical Exam . Results & Data Results & Data Laboratory Results . Diagnostic Findings . PG Care Time/CCT Total # of Minutes Spent Total Time Spent with Patient: Total time spent is greater than 50% in coordination of care (as documented) at patient's floor/unit and/or counseling patient: Coding Level of Care Code 50938 Post Operative Follow-Up
--- NOTE | 2023-04-14 07:40 | Hospitalist Progress Note ---
Date of Service April 14, 2023 Assessment & Plan (1) Cervical radiculopathy: Plan: Pt is a 47 yo female s/p p C5-C6, C6-C7 Anterior Cervical Disc Arthroplasty with a past med hx of GERD, hypothyroidism, insomnia, fibromyalgia, ADHD, depression. Consulted for medical management. s/p C5-C6, C6-C7 Anterior Cervical Disc Arthroplasty(Not Applicable) - Tanvir Moeller MD on 04/13. EBL 20cc WBC wnl, afebrile Hgb 9.8--> 8.8, acute blood loss from surgery in patient w/ baseline anemia and dilutional from IVF. Per patient, had gotten 2 doses of Venofer of the 3 ordered prior to surgery. Iron studies w/ iron 38, elevated unsaturated IBC 415, TIBC elevated 453, trans % sat 8%, ferritin 91.8 despite this. Discussed w/ patient and ordered dose 300mg Venofer prior to discharge and can f/u PCP. Recently seen by GI for EGD given hx gastric ulcer, on PPI BID and EGD reporting w/ healed prior ulceration. No CP/SOB/hypoxia reported. pain control/bowel regimen/PT/OT per primary service Per patient, anticipating discharge today -- discussed can dc after venofer. Consideration to increase her iron to BID daily if no issues w/ constipation (2) Chronic anemia: Plan: Chronic anemia of note, recent EGD earlier this year for hx gastric ulcer (likely 2nd to prior surgery w gastric bypass). on outpatient iron infusions --> reported getting 2 of 3 infusions prior to surgery Recent EGD w/ no further gastric ulceration Hgb 9.8--> 8.8 on repeat as above. Iron studies ordered as outlined, Venofer prior to dc -Prior B12 not deficient (hx gastric bypass), never had folic acid level checked Should avoid NSAIDs Consider increasing PO iron supplementation to BID in f/u with PCP, consideration for c-scope if not already completed for further eval but denied any blood in urine/stool (3) Prediabetes: Plan: Prediabetes, A1c 5.6 on pre-op labs BSG AC/HS, SSI while inpatient and metformin held. Can resume at dc and f/u PCP (4) Hypothyroidism: Plan: Hypothyroidism - continue levothyroxine 137 mcg. TSH wnl in July. F/u PCP (5) GERD without esophagitis: Plan: GERD - continue pantoprazole 40 mg BID (hx ulceration as above) - continue famotidine 20 mg (6) ADHD: Plan: ADHD - will defer Ritalin while inpatient , can resume outpatient at d/c (7) Fibromyalgia: Plan: Fibromyalgia, Depression - continue duloxetine, doxepin, gabapentin (8) Insomnia: Plan: Insomnia - continue daily Benadryl 50 HS - continue clonidine HS Allergies - continue Gayatri daily (9) Depression: Plan: noted, mood stable for exam Plan DVT prophylaxis: will defer for now, pt very low risk Thank you for allowing hospitalist service to participate in the care of Ms Patel. Hospitalist service will sign off at this time. Please call with any questions/concerns. Admission and Anticipated Discharge Date Admission Date: April 13, 2023 Supervising Physician Co-Signing Physician Notes The patient was not seen by me. The chart was reviewed. Case discussed with PAYAL Collins. Agree with assessment and plan Subjective Eval this morning, resting in bed, anticipating discharge today. Eating/drinking no issues, some discomfort but no stridor/shortness of breath/chest pain, fevers or chills. On iron supplementation but got 2/3 ordered IV doses before surgery. Discussed iron studies/Venofer IV prior to dc. Still w/ some numbness and tingling to her hands but strength equal bilaterally. Questions/concerns addressed at this time. 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, strength intact, pulses palpable, no facial droop or slurred speech, answering questions appropriately -reports slight decreased sensation to l ight touch b/l UE Psych: AOx3, cooperative with exam Results & Data Results & Data Vital Signs (Past 12 Hours) Vital Signs Temp Pulse Resp BP Pulse Ox O2 Del Method O2 Flow Rate 04/14/23 07:23 36.7 C 68 16 111/69 93 Room Air 04/14/23 05:35 36.6 C 73 16 109/72 97 Nasal Cannula 2 04/14/23 03:40 69 16 98 Nasal Cannula 1 04/14/23 03:09 36.7 C 74 16 98/68 L 97 Nasal Cannula 2 04/14/23 01:22 36.6 C 73 16 101/61 94 Room Air 04/13/23 23:24 36.6 C 67 16 100/66 94 Room Air 04/13/23 23:10 67 16 94 Room Air 04/13/23 21:07 36.7 C 67 16 107/69 95 Room Air 04/13/23 19:57 76 18 97 Room Air Laboratory Results 04/14/23 06:55 Diagnostic Findings Cervical Spine X-Ray 04/13/23 07:15 FL cervical 2-3V CLINICAL HISTORY: C5-6, C6-7 ANTERIOR ARTHROPLASTY COMPARISON STUDY: MRI cervical spine 10/01/2022 FLUOROSCOPY TIME: 163.5 seconds FLUOROSCOPY IMAGES: 15 EXPOSURE DOSE: 36.32 mGy FINDINGS: Endotracheal tube is present. Anterior approach discectomy changes at C5-C6 and C6-C7. Multilevel spondylotic spurring with intervertebral disc space narrowing and facet arthrosis. Expected postoperative soft tissue swelling. No unexpected opaque foreign bodies. Note that the images were submitted following completion of the surgery. IMPRESSION: Fluoroscopic assistance as above. ACT 112: Negative or not required by law. Electronically signed by: Justin Jessica M.D. 04/13/2023 12:28 PM PG Care Time/CCT Total # of Minutes Spent Total Time Spent with Patient: Total time spent is greater than 50% in coordination of care (as documented) at patient's floor/unit and/or counseling patient: Coding Level of Care Code 02065 SUB INP/OBS CARE 2/35MIN Diagnoses Cervical radiculopathy M54.12 Chronic anemia D64.9 Prediabetes R73.03 Hypothyroidism E03.9 GERD without esophagitis K21.9 ADHD F90.9 Fibromyalgia M79.7 Insomnia G47.00 Depression F32.A
[2023-04-14 07:54] LABS: Microcytosis Present
[2023-04-14] MEDS ORDERED: GABAPENTIN 800 MG TAB PO SCH (08:00)
[2023-04-14] MEDS ORDERED: metFORMIN HCL 500 MG TAB PO SCH (08:00)
[2023-04-14] MEDS: tiZANidine HCL 4 MG TABLET PO PRN (08:40)
[2023-04-14] MEDS: PANTOprazole 40 MG TAB PO SCH (08:41)
[2023-04-14] MEDS: METHYLPHENIDATE HCL 10 MG TABLET PO SCH (08:44)
[2023-04-14] MEDS: INSULIN ASPART PER UNIT CHARGE SC SCH ×2 (08:51→12:04)
[2023-04-14 08:54] LABS: Albumin Globulin Ratio 1.7 (0.9-2); BUN Creatinine Ratio 24.1 (10-20); Bilirubin,Total 0.6 mg/dl (0.2-1.0); Calcium 8.8 mg/dl (8.6-10.3); Creatinine Clr Calc Pharmacy 89.9 ml/min; Est GFR (African American) 96.6 ml/min; Est GFR (Non-African American) 83.4 ml/min; Globulin 2.4 gm/dl (2.5-4.0); Potassium 3.9 mmol/L (3.5-5.1); Total Protein 6.4 gm/dl (6.0-8.3)
[2023-04-14] MEDS ORDERED: CHOLECALCIFEROL 1,000 UNITS 25 MCG TAB PO SCH (09:00)
[2023-04-14] MEDS ORDERED: FERROUS SULFATE 325 MG TAB PO SCH (09:00)
[2023-04-14] MEDS ORDERED: MULTIVITAMIN TAB PO SCH (09:00)
[2023-04-14] MEDS ORDERED: SPIRONOLACTONE 25 MG TAB PO SCH (09:00)
[2023-04-14] MEDS ORDERED: FEXOFENADINE HCL 180 MG TAB PO SCH (09:00)
[2023-04-14 09:11] LABS: Ferritin 91.8 ng/ml (8-388)
[2023-04-14] MEDS ORDERED: IRON SUCROSE 300 MG in SODIUM CHLORIDE 0.9% 250 ML IV ONE (09:35)
--- NOTE | 2023-04-14 12:34 | Operative Report ---
PG Post Operative Report Pre & Post Diagnosis Operation Date: 04/13/23 07:15 Pre-Op Diagnosis: Cervical Disc Degneration. Cervical Stenosis Post-Op Diagnosis: Cervical Disc Degneration. Cervical Stenosis I identified the patient and participated in the time-out.: Yes Procedure Operation Date: 04/13/23 07:15 Actual Procedures p C5-C6, C6-C7 Anterior Cervical Disc Arthroplasty(Not Applicable) - Tanvir Moeller MD Surgeon Tanvir Moeller MD [employer] none Estimated Blood Loss 20 Findings Consistent with Post-Op Diagnosis Specimens None Description of Procedure 1. C5-6 anterior decompression, placement of artificial disc replacement. NuVasive Simplify size 2 height 4 [id number] 2. C6-7 anterior decompression, placement of artificial disc replacement. NuVasive Simplify size 2 height 4 [id number] Patient was taken the operating room table and after adequate anesthesia was carefully positioned on the OR table, OSI flat top, in spine position. Patient was then positioned in routine fashion for an anterior approach to the mention levels, preprep was performed, I then brought in fluoroscopy and marked for the area of the incision to address both levels. Prep and drape was performed, I began the procedure with a transverse incision on the left side in the area of the sternocleidomastoid. From here I dissected down in routine fashion to then reach the anterior cervical spine without issue. Fluoroscopy was brought in to document the levels to be addressed, followed by then bringing in the retractor system. I utilized the fluoroscopy to place distractor pins at the C6 and 7 levels followed by then bringing in the operative microscope. With the retractor set I began the procedure with an anterior annulotomy and then moved through the disc space in routine fashion with combination of curettes and pituitaries. Once the disc base was cleaned of disc material, I then applied a distractor to obtain a proper height. The decompression was then completed posteriorly across the interspace and out to the uncinates on both sides. Trial was then selected and the size noted was obtained, I then used the keel cutter to insert under fluoroscopic control the cuts into the C6 and C7 vertebral bodies for placement of the device. The device was then inserted with excellent position on AP and lateral views. I removed the distractor pin at C7, and then this was then positioned at C5 using fluoroscopic control. Once again the retractors were then resituated, and a decompression was then performed at the C5-6 level in routine fashion. The trial was inserted, I decided on the same size as the C6-7 level, the keel cut was then made with the device followed by then placement of the device with excellent position on AP and lateral views. Distractor pins were removed, Gelfoam and bone wax was applied to the holes, final evaluation revealed no issues the operative site, vancomycin powder was placed. The operative site was then closed using interrupted 3-0 Vicryl sutures followed by benzoin and Steri-Strips and a sterile dressing, The patient tolerated procedure well was taken recovery room centric condition. I attest to the content of the Intraoperative Record and any orders documented therein. Any exceptions are noted below.
--- NOTE | 2023-04-14 12:42 | Billing Data ---
Date of Service April 13, 2023 Coding Level of Care Code 18290 IN/OBS CONSULT LVL 2,35M
[2023-04-14] MEDS ORDERED: ceFAZolin 1000MG 1,000 MG/7.5 ML SYR IV SCH (20:00)
[2023-04-14] MEDS ORDERED: diphenhydrAMINE Capsule 25 MG CAP PO SCH (21:00)
[2023-04-15 07:44] LABS: Hypochromasia Present
== END 2023-04-14 12:26 | disposition home or self-care (01) | DRG 518 ==
LOC: ASU 05:33 → INTOOBSV 14:30 → 3E 14:30

== ENCOUNTER 2025-01-10 05:56 | Observation (INO) ==
--- NOTE | 2025-01-03 11:16 | Anesthesiology Consultation ---
Date of Service January 03, 2025 Assessment & Plan (1) Encounter for pre-operative examination: Infectious disease screening: Per assessment on 01/03/25- No known recent infectious disease contacts or current infectious disease symptoms. Chart Review Chart Review: Acceptable Risk for Surgery and Patient NOT seen in Pre Admission Testing History Surgery Operation Date: 01/10/25 07:30 Proposed Procedures p Abdominoplasty with Liposuction - Ana Brown MD s Bilateral Breast Augmentation with Bilateral Mastopexy - Ana Brown MD Height/Weight Height: 5 ft 6 in Weight: 72.575 kg Allergies Allergy/AdvReac Type Severity Reaction Status Date / Time No Known Allergies Allergy Unknown Verified 01/03/25 10:43 Medications Home Medications Medication Instructions Recorded Confirmed Last Taken cholecalciferol (vitamin D3) 50 50 mcg PO QAM 01/19/22 01/03/25 12/07/23 08:00 mcg (2,000 unit) capsule ferrous sulfate 325 mg (65 mg 325 mg PO QAM 01/19/22 01/03/25 12/07/23 08:00 iron) tablet multivitamin 10 ml PO QAM 10/19/22 01/03/25 12/07/23 08:00 pantoprazole 40 mg tablet,delayed 40 mg PO BID #180 tabs 04/21/24 01/03/25 Unknown release clonidine HCl 0.2 mg tablet 0.2 mg PO HS #90 tabs 04/25/24 01/03/25 Unknown spironolactone 25 mg tablet 25 mg PO .COMPLEX #270 tabs 04/26/24 01/03/25 Unk nown metformin 500 mg tablet 1,000 mg (2 x 500 mg) PO BID #360 07/17/24 01/03/25 Unknown tabs tretinoin 0.025 % topical cream 1 applic topical Q OTHER DAY #45 07/17/24 01/03/25 Unknown grams famotidine 40 mg tablet 40 mg PO BID #60 tabs 08/23/24 01/03/25 Unknown gabapentin 800 mg tablet See Rx Instructions PO .COMPLEX 08/28/24 01/03/25 Unknown #360 tabs duloxetine 60 mg capsule,delayed 60 mg PO HS #90 caps 09/06/24 01/03/25 Unknown release methylphenidate HCl 10 mg tablet 10 mg PO BID #60 tabs 09/25/24 01/03/25 Unknown (Ritalin) doxepin 50 mg capsule 50 mg PO HS #90 caps 11/28/24 01/03/25 Unknown diazepam 5 mg tablet (Valium) 5 mg PO TID PRN muscle spasm #15 12/25/24 01/03/25 Unknown tabs ondansetron HCl 4 mg tablet 4 mg PO Q6H PRN nausea and 12/25/24 01/03/25 Unknown vomiting #14 tabs cyanocobalamin (vitamin B-12) 1 tab PO DAILY 01/03/25 01/03/25 Unknown levothyroxine 150 mcg tablet 150 mcg PO HS 01/03/25 01/03/25 Unknown Past Medical History Medical History ADHD Chronic neck pain Circadian rhythm disorder Depression Fibromyalgia GERD (gastroesophageal reflux disease) History of adenomatous polyp of colon History of allergic drug reaction Rash after remote pain management injections years ago > referred to [facility] [place] Allergy; per Allergy visit 07/24/22: "Her history is somewhat unusual in the sense of the initial rash was on the ankle even though the injections were in the shoulder and back. Most often, the injection site would be the site of greatest inflammation with drug allergies, particularly delayed type hypersensitivity reactions which is what this sounds like." No definitive medication etiology found per available records History of blood transfusion Multiple, most recent 2022 in setting of gastric ulcer History of colitis No current/recent issues History of COVID-19 2021, resolved History of gastric ulcer 09/2022 History of kidney stones Hx of iron deficiency anemia Hypothyroidism Insomnia Prediabetes Sacroiliac joint pain ongoing Past Family History Family History Grandmother (Maternal) Breast cancer Father Pancreatic cancer Sister Nausea and vomiting after administration of anesthetic agent Denies family history of Ovarian cancer Prostate cancer Myocardial infarction Colorectal cancer Past Surgical History Surgical History H/O cystoscopy H/O lithotripsy Multiple History of bilateral tubal ligation History of cholecystectomy History of colonoscopy + polypectomy History of esophagogastroduodenoscopy (EGD) History of radiofrequency ablation (RFA) of nerve of cervical spine early 2024 History of tooth extraction Hx of cervical spine surgery (04/13/23) C5-7 Anterior Cervical Disc Arthroplasty Hx of gastric bypass Initial surgery (2008) > revision (2018) Nausea after anesthesia S/P carpal tunnel release R/L S/P endometrial ablation S/P right rotator cuff repair [place] teeth extracted Social History Smoking Status: Former smoker Do You Dip or Chew Tobacco: No Smoking End Date: years ago Hx Alcohol Use: Yes alcohol intake frequency: other Alcohol Intake Frequency Comment: ~10x/year Hx Substance Use: No substance use type: does not use Lab Results Anesthesia Preop Results Results Anesthesia Widget: WBC 7.15 K/ul (4.8-10.8) 12/26/24 Hgb 12.8 g/dl (12.0-16.0) 12/26/24 Hct 40.3 % (37.0-47.0) 12/26/24 Plt 340 K/uL (130-400) 12/26/24 Na 137 mmol/L (136-145) 12/26/24 K 4.4 mmol/L (3.5-5.1) 12/26/24 Cl 104 mmol/L (98-107) 12/26/24 CO2 28 mmol/L (21-32) 12/26/24 BUN 27 mg/dl (6-23) H 12/26/24 Creat 0.92 mg/dl (0.6-1.2) 12/26/24 Glucose Level 95 mg/dl (70-99(Fasting)) 12/26/24 PT 10.3 Seconds (9.0-12.0) 12/26/24 INR 0.9 (0.9-1.1) 12/26/24 Testing Electrocardiogram Date: 12/26/24 Findings: + NSR @ (30)
[2025-01-10] MEDS: LR 15ML/HR IV SCH (06:34)
--- NOTE | 2025-01-10 06:51 | History & Physical Bridge Note ---
Date of Service January 10, 2025 History & Physical Bridge Note I have examined the patient, reviewed the History & Physical and in the interval since the performance of the History & Physical I have noted the following changes of clinical significance: no changes noted. Leaves final implant size up to my discretion-patient goal is larger and lifted.
[2025-01-10] MEDS ORDERED: ATROPINE SULFATE 0.1 MG/ML 10ML SYR IV PRN ×2 (06:53→15:07)
[2025-01-10] MEDS ORDERED: ONDANSETRON INJ 2 MG/ML 2 ML VIAL IV PRN ×2 (06:53→15:06)
[2025-01-10] MEDS ORDERED: HYDROmorphone INJ 1 MG/ML SYRINGE IV PRN ×2 (06:53→15:06)
[2025-01-10] MEDS ORDERED: PROMETHAZINE HCL 6.25 MG in SODIUM CHLORIDE 0.9% 50 ML IV PRN (06:53)
[2025-01-10] MEDS ORDERED: ONDANSETRON INJ 2 MG/ML 2 ML VIAL ONE ×2 (07:06→14:00)
[2025-01-10] MEDS ORDERED: PROPOFOL IV EMULSION 10 MG/ML 20 ML VIAL IV ONE (07:06)
[2025-01-10] MEDS ORDERED: LIDOCAINE 2% 2 ML VIAL/AMP(20MG/ML) INFIL ONE (07:06)
[2025-01-10] MEDS ORDERED: ROCURONIUM BROMIDE 10 MG/ML 5 ML VIAL IV ONE ×4 (07:06→11:26)
[2025-01-10] MEDS ORDERED: PROPOFOL IV EMULSION 10 MG/ML 100 ML VIAL IV ONE (07:06)
[2025-01-10] MEDS ORDERED: MIDAZOLAM HCL 1 MG/ML 2ML VIAL ONE (07:15)
[2025-01-10] MEDS ORDERED: SCOPOLAMINE 1 MG/72 HR TDSY PATCH TD ONE (07:24)
[2025-01-10] MEDS: TRANEXAMIC ACID 1,000 MG **IV Pre-op IV SCH (07:34)
[2025-01-10] MEDS: LIDOCAINE 1% LOCAL 20 ML VIAL ONE (10:09)
[2025-01-10] MEDS: EPINEPHrine INJ 1 MG/ML AMP ONE (10:10)
[2025-01-10] MEDS ORDERED: HYDROmorphone INJ 2 MG/ML SYR/VIAL ONE ×2 (10:28→13:36)
[2025-01-10] MEDS: GENTAMICIN SULFATE 40 MG/ML 2 ML VIAL ONE ×2 (10:58→15:17)
[2025-01-10] MEDS: ceFAZolin 330 MG/ML 1 GM VIAL ONE ×2 (10:59→15:17)
[2025-01-10] MEDS ORDERED: ceFAZolin 330 MG/ML 1 GM VIAL ONE (11:27)
[2025-01-10] MEDS: BUPIVACAINE 0.25% PF 30 ML VIAL ONE (12:03)
[2025-01-10] MEDS: LIDOCAINE 1%/EPINEPHRINE 1:100,000 50 ML VIAL ONE (12:03)
[2025-01-10] MEDS ORDERED: ACETAMINOPHEN 1000 MG/100 ML IV IV ONE (13:07)
[2025-01-10] MEDS ORDERED: SUGAMMADEX SODIUM 200 MG/2 ML VIAL IV ONE (13:36)
--- NOTE | 2025-01-10 14:14 | Post Operative Brief Note ---
PG Immediate Post Op with CF Date of Surgery January 10, 2025 Pre & Post Diagnosis Operation Date: 01/10/25 07:30 Pre-Op Diagnosis: Encounter for Cosmetic Surgery Post-Op Diagnosis: Encounter for Cosmetic Surgery I identified the patient and participated in the time-out.: Yes Procedure Operation Date: 01/10/25 07:30 Actual Procedures p Abdominoplasty with Liposuction(Not Applicable) - Ana Brown MD s Bilateral Breast Augmentation with Silicone Implants and Bilateral Mastopexy(Bilateral) - Ana Brown MD Surgeon Ana Brown MD Instructional Design Consultant Yoly Pineda PA-C Estimated Blood Loss 25 Findings Consistent with Post-Op Diagnosis Drains Rondon Catheter (see anesthesia record for urine output ) and Champ-Patel Drain
--- NOTE | 2025-01-10 14:29 | Operative Report ---
PG Post Operative Report Pre & Post Diagnosis Operation Date: 01/10/25 07:30 Pre-Op Diagnosis: Encounter for Cosmetic Surgery Post-Op Diagnosis: Encounter for Cosmetic Surgery I identified the patient and participated in the time-out.: Yes Procedure Operation Date: 01/10/25 07:30 Actual Procedures p Abdominoplasty with Liposuction(Not Applicable) - Ana Brown MD s Bilateral Breast Augmentation with Silicone Implants and Bilateral Mastopexy(Bilateral) - Ana Brown MD Surgeon Ana Brown MD Local Sales Manager Yoly Pineda PA-C Estimated Blood Loss 25 Findings Consistent with Post-Op Diagnosis Specimens none Drains JOSE x2 Anesthesia Type General Complications none Indications s/p massive weight loss, with excess skin of the abdomen, breast ptosis and volume loss Description of Procedure The risks, benefits, and alternatives of the procedure were explained to the patient, who agreed and signed consent. She was identified and marked in the preoperative holding area. We discussed her goals for surgery. She was interested in both a lifted appearance as well as a larger breast. We discussed whether she would forego mastopexy if I felt an implant would fill out the pocket sufficiently and consider mastopexy at a second stage. She was agreeable to this option as well and stated she would leave it up to my clinical decision making. She was brought to the operating room, where she was positioned supine and placed under general anesthesia without incident. A dunham catheter was placed. Surgical site was prepped and draped sterilely. A time-out procedure w as performed. Tegaderms were placed as a barrier over the nipple-areolar complexes bilaterally. Access incision was marked in the inframammary fold along the planned lateral mastopexy incision. 1% lidocaine with epinephrine was used to anesthetize the planned incisions as well as the breast parenchyma. A 15 blade scalpel was used to make the incision through skin and into underlying dermis. The incision was deepened using electrocautery through subcutaneous fat and breast parenchyma. I planned a submuscular augmentation in order to maximize blood supply for possible mastopexy and provide upper pole fullness as desired by the patient. The lateral border of the pectoralis major muscle was identified and elevated. A retropectoral pocket was created using lighted retractor and electrocautery. Dissection was first performed superiorly and laterally and then dissection was carried medially along the inframammary fold. Pectoralis major muscle fibers were weakened using electrocautery, leaving the pectoralis fascia intact along the inframammary fold. Small tendinous attachments medially were divided using electrocautery, leaving the origin of the pectoralis intact along the sternum. Once I was satisfied with the pocket dissection, hemostasis was achieved with electrocautery. Following this, the wound was irrigated with saline and sizer implants were tried. I initially beg an with a 405 sizer moderate profile sizer which I placed into the pocket. The implant fit nicely into the pocket but did lead to some lateral fullness of the breast which I felt might be dissatisfied to the patient. I then selected a 415 cc full profile sizer implant which was placed into the pocket and filled the pocket nicely. The wound was tailor tacked using a 2-0 Vicryl suture and the patient was placed in seated position. While the volume and implant position were excellent, it was clear that there would be a waterfall deformity if mastopexy was not performed. With the patient's desired size goal of around 400 cc and a more lifted breast, I therefore did elect to proceed with mastopexy at that time. Markings were reassessed. I did place several skin amy to determine appropriate tension and incision markings were adjusted. Amy were then removed. A 38 millimeter cookie cutter was used to circumscribe the left nipple areolar complex. 15 blade scalpel then made the mastopexy incisions. The skin between the incisions was de-epithelialized using a 15 blade scalpel. I then used electrocautery to make an incision through dermis and underlying subcutaneous fat along the upper medial and lateral portions of the deepithelialized area as well as at the superior margin of the keyhole incision. I raised a mastopexy flap medially and laterally, by incising the dermis and raising medial flap with about 1 cm of underlying soft tissue. I did not incise the superior portion of the nipple areolar complex in order to further preserve blood supply to the nipple areolar complex. This was performed with the sizer in place. Following this, the sizer implant was removed. Once I was satisfied with the shape and the pocket size of both breasts, the pockets were inspected for hemostasis and again irrigated with triple antibiotic irrigation. Gloves were changed, instruments were wiped down and I selected an 415 cc smooth round full profile silicone gel implant with serial #[id number] which was then placed in the left breast pocket. The position was checked and the implant was placed inferiorly as possible along the inframammary fold. Superficial fascia was re-approximated using 2-0 Vicryl interrupted sutures, 2- 0 Vicryl suture was then used to reapproximate the T-junction, and wound closure was begun using 2-0 Vicryl interrupted deep dermal 3-0 PDS interrupted superficial dermal sutures to reapproximate the wounds; 3-0 PDS interrupted dermal sutures were placed around the nipple areolar complex. A similar dissection was undertaken on the right side for placement of the implant, followed by mastopexy in similar fashion. An identical implant was selected for the right side with serial #[id number] and closure was performed in similar fashion. Sylke was applied to both incisions. I then began the abdominoplasty portion of the procedure. I reassessed my markings which included a lower horizontal abdominal incision. Incision was marked bilaterally to the ASIS. I began with the liposuction portion of the procedure. 3 small stab incisions were marked within tissue that I plan to resect. 1% lidocaine with epinephrine was used anesthetize the sites. 15 blade scalpel was used to make a small stab incision. Tumescent fluid was then infiltrated into the epigastric/periumbilical area. A total of 434 cc of tumescent fluid was infiltrated into these sites. A 3 mm liposuction cannula was selected. Pretunneling was performed from multiple directions into each area of planned liposuction. Following pretunneling, suction was applied. Suc tion was applied from multiple directions and the cannula was passed. Care was taken to keep the suction cannula beneath Zena's fascia as much as possible in order to preserve blood supply. Endpoints of liposuction were improvement in contour such that the abdominal flap would be of uniform thickness. Minimal bloody aspiration was obtained. A total of approximately 300 cc of Lipo aspirate was obtained. I then injected 1% lidocaine with epinephrine along the planned lower abdominal incision. The lower abdominal incision was made using a 15-blade scalpel to incise epidermis and superficial dermis followed by electrocautery to incise deep dermis, subcutaneous fat, Zena's fascia down to the abdominal wall. Electrocautery was used to elevate the anterior abdominal skin flap ligating the perforating vessels with electrocautery. Dissection was carried up to the level of the umbilicus in the midline. At this point, a 15- blade scalpel was used to circumscribe the umbilicus. A vertical midline incision was then made from the incision to the umbilicus and divided in the midline using electrocautery. The umbilicus was then dissected out using electrocautery down to abdominal wall. The umbilical stalk appeared viable throughout the procedure.I continued undermining the abdominal wall skin flap above the umbilicus to the xiphoid process, significantly narrowing the dissection to avoid jeopardizing blood supply.Following completion of this, I began repair of the rectus diastasis, which was about 4 cm in greatest diameter and extended nearly the full length of the abdomen, widest above the umbilicus. Plication from the xiphoid to the umbilicus and from the umbilicus to the pubic symphysis was performed using 0 Prolene interrupted [id number] sutures. 0 Prolene running suture was then placed to oversew the [id number] sutures and reinforced the repair. At this point, the bed was flexed and the mid portion of the superior skin flap was inset above the mons pubis using 2-0 Vicryl suture. Skin flaps were marked for excision. A 15-blade scalpel was used to make these incisions and the incision was deepened through dermis, subcutaneous fat, Zena's fat using electrocautery. Some subscarpal fat was resected directly to improve contour. 15 Romanian Tyree drains were placed in the wound bed and brought out through a separate stab incision in the mons pubis. The drains were sutured into place using 3-0 nylon. The umbilicus was brought out through an inverted triangular incision in the abdominal wall. This was performed using a 15-blade scalpel.Wound closure was then begun lateral to medial using 2-0 Vicryl Zena's fascia sutures, 2-0 Vicryl deep dermal sutures, 2-0 PDO running superficial Quill suture, 3-0 Monocryl running subcuticular suture. Umbilicus was brought out through the inverted triangle incision and was sutured into place using 4-0 chromic half buried horizontal mattress sutures. The umbilicus was dressed using Xeroform and the incision was dressed using Sylke followed by dry dressings and an abdominal binder. Dry dressings, an abdominal binder and a surgical bra were placed. The patient was awakened and transferred to recovery in satisfactory condition. Yoly Pineda PA-C was present and scrubbed throughout the entire procedure, assisting with retraction and simultaneous wound closure. I attest to the content of the Intraoperative Record and any orders documented therein. Any exceptions are noted below.
--- NOTE | 2025-01-10 14:52 | Anesthesiology Progress Note ---
Date of Service January 10, 2025 Anesthesia Post Procedure Vital Signs Vital Signs: Temp Pulse Resp BP Pulse Ox O2 Del Method 01/10/25 06:19 36.7 C 65 18 113/70 97 Room Air Transfer of Care Handoff Completed per policy Notes Mental Status: alert / awake / arousable and participated in evaluation Patient Amnestic to Procedure: Yes Nausea / Vomiting: adequately controlled Pain: adequately controlled Airway Patency, RR, SpO2: stable & adequate BP & HR: stable & adequate Hydration State: stable & adequate Anesthetic Complications: no major complications apparent and Pt Satisfied with anesthetic care
[2025-01-10] MEDS: PROMETHAZINE HCL 6.25 MG in SODIUM CHLORIDE 0.9% 50 ML IV PRN (15:12)
[2025-01-10] MEDS ORDERED: Nursing to Pharmacy Communication SCH (15:15)
[2025-01-10] MEDS ORDERED: LORazepam 0.5 MG TAB PO PRN (16:21)
[2025-01-10] MEDS ORDERED: MoRPHine SULFATE 2 MG/ML CARP IV PRN ×2 (16:21)
[2025-01-10] MEDS ORDERED: diphenhydrAMINE 50 MG/ML VIAL IV PRN (16:21)
[2025-01-10] MEDS ORDERED: PROMETHAZINE 12.5 MG/50.5 ML BAG IV PRN (16:21)
[2025-01-10] MEDS: PROMETHAZINE HCL INJ 25 MG/ML 1 ML VIAL ONE (16:28)
[2025-01-10] MEDS: D5W AND 1/2NSS + 20MEQ KCL 20 MEQ/1,000 ML BAG IV SCH (16:48)
[2025-01-10] MEDS ORDERED: COUGH DROP (SUGAR FREE) LOZ 24 LOZ/1 BOX BUCCAL PRN (18:19)
[2025-01-10] MEDS: DOXEPIN HCL 50 MG CAPSULE PO SCH (20:48)
[2025-01-10] MEDS: LEVOTHYROXINE SODIUM 150 MCG TABLET PO SCH (20:48)
[2025-01-10] MEDS: SPIRONOLACTONE 25 MG TAB PO SCH (20:48)
[2025-01-10] MEDS: FAMOTIDINE 40 MG TABLET PO SCH (20:49)
[2025-01-10 23:40] VITALS: RESP 16; TEMP 98.2
[2025-01-11] MEDS: diphenhydrAMINE Capsule 25 MG CAP PO PRN (05:40)
[2025-01-11] MEDS: ONDANSETRON INJ 2 MG/ML 2 ML VIAL IV PRN (05:47)
[2025-01-11 07:18] VITALS: BP 115/74; PULSE 77; O2SAT 90
--- NOTE | 2025-01-11 07:33 | Surgery Progress Note ---
Date of Service January 11, 2025 Assessment & Plan (1) Encounter for cosmetic surgery: Plan: Reece is doing very well. She will void prior to d/c home. Office f/u is scheduled for tomorrow. Admission and Anticipated Discharge Date Admission Date: January 10, 2025 Subjective Reece is resting comfortably in bed. Rondon removed but she has not voided yet. Pain is controlled. Physical Exam Physical Exam: drains with serosang output. dressings in place. no evidence of hematoma, incisions CDI Results & Data Vital Signs (Past 12 Hours) Vital Signs Temp Pulse Resp BP Pulse Ox O2 Del Method O2 Flow Rate 01/11/25 07:16 36.8 C 77 16 115/74 90 Room Air 01/11/25 03:22 36.8 C 67 16 111/70 92 Room Air 01/10/25 23:36 36.8 C 69 16 96/58 L 91 Room Air 01/10/25 20:46 116/70 95 Room Air 01/10/25 20:46 97 Nasal Cannula 1 PG Care Time/CCT Total # of Minutes Spent Total Time Spent with Patient: Total time spent is greater than 50% in coordination of care (as documented) at patient's floor/unit and/or counseling patient: Coding Level of Care Code 32752 Post Operative Follow-Up Diagnoses Encounter for cosmetic surgery Z41.1
[2025-01-11] MEDS: MULTIVITAMIN TAB PO SCH (07:55)
[2025-01-11] MEDS ORDERED: ENOXAPARIN INJ 40 MG/0.4 ML SYR SQ SCH (14:45)
--- NOTE | 2025-01-11 14:55 | Discharge Summary ---
Date of Service January 11, 2025 Admission HPI Per Admitting Provider History fo 100lb weight loss, now with excess skin. Admission Exam Per Admitting Provider see admission H&P Principal Diagnosis encounter for cosmetic surgery Discharge Exam VSS. incisions CDI, drains with serosang output Discharge Data Allergies Allergy/AdvReac Type Severity Reaction Status Date / Time No Known Allergies Allergy Unknown Verified 01/10/25 06:16 Procedures Performed Operation Date: 01/10/25 07:30 Actual Procedures p Abdominoplasty with Liposuction(Not Applicable) - Ana Brown MD s Bilateral Breast Augmentation with Silicone Implants and Bilateral Mastopexy(Bilateral) - Ana Brown MD Ordered Studies 01/10/25 05:00 US - OR guided needle placemen Routine Hospital Course (1) Encounter for cosmetic surgery: Patient presented to [facility] with history of weight loss and excess skin. She was taken to the OR and underwent bilateral mastopexy, breast augmentation, and abdominoplasty with liposuction of the trunk. There were no intraoperative complications. She was taken to recovery and transferred to med/surg for observation. On POD#1, she was feeling well. She was tolerating a regular diet and ambulating. She was able to void after catheter was removed. On exam, her vitals were stable. Her incisions were CDI. Her drains had appropriate output. She was discharged home with instructions to follow-up in the office in one day. Total Time Total Time Spent Total Time Spent (In Minutes): 15 Total Time Includes: Examination of the Patient and Communication With Other Providers Discharge Plan Discharge Items Patient Disposition: Home - Self-Care Reason For Visit: Encounter for Cosmetic Surgery Discharge Diagnosis: s/p mastopexy, breast augmentation and abdominoplasty Activity: As commented below Non-emergency contact: Surgeon Call non-emergency contact if: you have any medication questions, your pain is not controlled, you have a fever, your wound has increased redness and your wound has increased drainage Follow-up/Referrals: Yoly Pineda PA-C [Physician Transportation Inspector] - Khloe De Santiago MD [Primary Care Provider] - Diet: Regular Addtl Attending Provider Instructions: ACTIVITY RECOMMENDATIONS: __Normal activities _x_No bending, lifting or straining. Do not stand or lay flat until it is easily comfortable __No driving __Driving allowed when you are off pain medications _x_Walking permitted __You should have help at home for ___ days __You may return to previous diet. DRESSINGS: __No dressings required _x_Keep dressings dry/in place until first office visit. Surgical bra and abdominal binder must stay on. __Remove dressings ___ and leave dressings off __Apply ice ___ days __Remove dressings and reapply garment __Apply antibiotic ointment (Bacitracin, Neosporin, etc) to wounds 3-4 times/day for 10 days BATHING: _x_Keep dressings dry _x_Sponge bathing permitted away from surgical sites __Showering permitted _x_No swimming, hot tubs or soaking in a tub MEDICATIONS: Resume previous medications unless instructed otherwise by your surgeon. _x_Do not use aspirin, Motrin, Advil or Ibuprofen as these may promote bleeding. Please use Tylenol. _x_Prescription(s) provided: antibiotics and pain medication were provided at your last office visit. start antibiotics today OTHER INSTRUCTIONS: _x_Record drain output 2-3 times per day. Criteria for drain removal is <10cc/24 hours per drain SPECIAL CARE INSTRUCTIONS: * It is normal to have a mild fever after surgery. If your temperature is higher than 101.5 degrees F, please call the office at [phone]. * Constipation is a typical side effect of pain medication. An xjmz-[id number] stool softener will help relieve this. * Leaking around surgical drains may occur and should not cause concern. Sometimes these drains become clogged. If this happens, remove the bulb and milk the clot out of the tube, then replace the bulb. * Drainage from wounds after liposuction is normal and should be expected. Garments will become soiled. You should protect furniture and bedding. This drainage shou ld mostly subside within 2-3 days. Leave garments in place unless instructed to remove them. * If you have unusual drainage from a wound or are concerned you have an infection or have any questions or concerns, please call the office at [phone]. FOLLOW UP VISIT: If not already scheduled, please call the office, , when you return home after surgery to schedule an appointment to be seen in _1__ days. Pending Studies at Discharge: No Stand-Alone Forms: My [facility], Smoking Cessation Medications and DC Order Prescriptions: Continued clonidine HCl 0.2 mg tablet 0.2 mg PO HS Qty: 90 3RF famotidine 40 mg tablet 40 mg PO BID Qty: 60 2RF gabapentin 800 mg tablet See Rx Instructions PO .COMPLEX Qty: 360 3RF Rx Instructions: orally; Take 1 tab BID, 2 tabs QHS duloxetine 60 mg capsule,delayed release(DR/EC) 60 mg PO HS Qty: 90 3RF doxepin 50 mg capsule 50 mg PO HS Qty: 90 1RF metformin 500 mg tablet 1,000 mg PO BID Qty: 360 3RF tretinoin 0.025 % cream 1 applic topical Q OTHER DAY Qty: 45 3RF ondansetron HCl 4 mg tablet 4 mg PO Q6H PRN (Reason: nausea and vomiting) Qty: 14 0RF Patient Comments: for post-op diazepam [Valium] 5 mg tablet 5 mg PO TID PRN (Reason: muscle spasm) Qty: 15 0RF Patient Comments: for post-op levothyroxine 150 mcg tablet 150 mcg PO HS Qty: 90 3RF pantoprazole 40 mg tablet,delayed release (DR/EC) 40 mg PO BID Qty: 180 3RF spironolactone 50 mg tablet 50 mg PO BID Qty: 180 3RF methylphenidate HCl [Ritalin] 10 mg tablet 10 mg PO BID Qty: 60 0RF Rx Instructions: Ongoing therapy Supervising physician Khloe De Santiago MD [facility] [id number] ferrous sulfate 325 mg (65 mg iron) tablet 325 mg PO QAM cholecalciferol (vitamin D3) 50 mcg (2,000 unit) capsule 50 mcg PO QAM multivitamin Liquid 10 ml PO QAM cyanocobalamin (vitamin B-12) Tablet,Chewable 1 tab PO DAILY Discharge Orders: Discharge Order (Routine); Ordered 01/11/25 Ordered By: Yoly Pineda Admission Data Admit Date/Time: 01/10/25 14:40 Attending Provider: Ana Brown Admit Provider: Ana Brown Primary Care Provider: Khloe De Santiago Other Interventions: Discharge Summary Assessment (RN) Last Done: 01/11/25 08:18 Coding Level of Care Code 55022 OBS Care - Discharge Diagnoses Encounter for cosmetic surgery Z41.1
== END 2025-01-11 09:36 | disposition home or self-care (01) ==
LOC: ASU 05:56 → 3E 05:56